=== PATIENT | male | born 1980 | race Two or more races ===

== ENCOUNTER 2016-11-29 18:54 | Inpatient (IN) | payer OTHER ==
[2016-11-29 19:17] VITALS: BMI 21.9
--- NOTE | 2016-11-29 19:57 | HP ---
CIWA Score - CIWA Score Nausea/Vomitin Muscle Tremors: 3 Anxiety: 3 Agitation: 2 Paroxysmal Sweats: 2 Orientation: 0-Oriented Tacttile Disturbances: 2-Mild Itch/Numbness/Burn Auditory Disturbances: 2-Mild Harshness/Frighten Visual Disturbances: 2-Mild Sensitivity Headache: 2-Mild CIWA-Ar Total Score: 21 Admission ROS BHS - HPI Chief Complaint: I NEED HELP TO STOP DRINKING ALCOHOL Allergies/Adverse Reactions: Allergies Allergy/AdvReac Type Severity Reaction Status Date / Time No Known Allergies Allergy Verified 10/14/16 11:22 History of Present Illness: THIS 36 YEARS OLD MALE WITH ALCOHOL DEPENDENCE,WITHDRAWAL SYMPTOM,LAST DETOX [facility] 10/14/16 TO 10/18/16 SYNCOPE ALCOHOL RELATED 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 PREVIOUS ADMISSIONS IN DETOX BUT RELAPSED LONGEST PERIOD OF SOBRIETY 1 MONTH Exam Limitations: No Limitations - Ebola screening Have you traveled outside of the country in the last 21 days: No Have you had contact with anyone from an Ebola affected area: No Do you have a fever: No - Review of Systems Constitutional: Loss of Appetite, Malaise, Night Sweats, Changes in sleep, Weakness EENT: reports: Nose Congestion Respiratory: reports: No Symptoms reported Cardiac: reports: Other (S/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 S/P IMPLANTED DEFIBRILLATOR) GI: reports: No Symptoms Reported : reports: No Symptoms Reported Musculoskeletal: reports: Muscle Pain Integumentary: reports: Dryness Neuro: reports: Headache, Tremors Endocrine: reports: No Symptoms Reported Hematology: reports: No Symptoms Reported Psychiatric: reports: other (PANIC ATTACK,ADHD) Patient History - Patient Medical History Hx Asthma: No Hx Chronic Obstructive Pulmonary Disease (COPD): No Hx Cardiac Disorders: Yes (TRANSPOSITION OF THE GREAT VESSELS) Hx Hypertension: Yes (on med) Hx Hypercholesterolemia: No Hx Pacemaker: No HX Cerebrovascular Accident: No Hx Seizures: No Hx Diabetes: No Hx Gastrointestinal Disorders: No Hx Liver Disease: No Hx Genitourinary Disorders: No Hx Sexually Transmitted Disorders: No Hx Renal Disease (ESRD): No Hx Thyroid Disease: No Hx Human Immunodeficiency Virus (HIV): No (last 04/04 negative) Hx Hepatitis C: No Hx Depression: No Hx Suicide Attempt: No Hx Bipolar Disorder: No Hx Schizophrenia: No Other Medical History: NO SUIDAL,NO HOMICIDAL,PANIC ATTACK,ADHD - Patient Surgical History Past Surgical History: Yes Hx Cardiac Surgery: Yes (AICD 02/02; OPEN SURGERY AT AGE 1 YEAR) Other Surgical History: 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 History Hx Alcohol Use: Yes Hx Substance Use: No Substance Use Type: Alcohol Hx Substance Use Treatment: Yes ([facility] 10/14/16 TO 10/18/16) - Substances Abused Alcohol Route: Oral Frequency: Daily Amount used: 2PINTS OF VODKA Age of first use: 21 Date of Last Use: 11/29/16 Family Disease History - Family Disease History Family Disease History: Heart Disease: Father (alcohol ,), Other: Father Admission Physical Exam S - Vital Signs Vital Signs: Vital Signs - 24 hr 11/29/16 19:16 Temperature 97.1 F L Pulse Rate 93 H Respiratory 20 Rate Blood Pressure 121/70 - Physical General Appearance: Yes: Moderate Distress, Tremorous, Irritable, Sweating, Anxious HEENTM: Yes: Nasal Congestion Respiratory: Yes: Lungs Clear Neck: Yes: Within Normal Limits Breast: Yes: Within Normal Limits Cardiology: Yes: Within Normal Limits (S/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 S/P IMPLANTED DEFIBRILLATOR), Regular Rhythm, Regular Rate, S1, S2 Abdominal: Yes: Within Normal Limits, Normal Bowel Sounds, Non Tender, Flat, Soft Genitourinary: Yes: Within Normal Limits Back: Yes: Within Normal Limits Musculoskeletal: Yes: Back pain, Muscle Pain Extremities: Yes: Tremors Neurological: Yes: 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, Fully Oriented, Alert, Motor Strength 5/5 Integumentary: Yes: Dry Lymphatic: Yes: Within Normal Limits - Diagnostic (1) Alcohol dependence with uncomplicated withdrawal Current Visit: No Status: Acute (2) Cardiac defibrillator in situ Current Visit: No Status: Chronic (3) GERD (gastroesophageal reflux disease) Current Visit: No Status: Chronic Qualifiers: Esophagitis presence: without esophagitis Qualified Code(s): K21.9 - Gastro-esophageal reflux disease without esophagitis (4) History of atrial fibrillation Current Visit: No Status: Chronic (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
[2016-11-29] MEDS ORDERED: MAGNESIUM CITRATE 300 ML BOTTLE PO PRN (20:15)
[2016-11-29] MEDS ORDERED: IBUPROFEN 400 MG TABLET (FP) PO PRN (20:15)
[2016-11-29] MEDS ORDERED: diphenhydrAMINE HCL 50 MG CAPSULE PO PRN (20:15)
[2016-11-29] MEDS ORDERED: ACETAMINOPHEN 325 MG TABLET (FP) PO PRN (20:15)
[2016-11-29] MEDS ORDERED: MAGNESIUM HYDROX 2400MG/30ML ORAL SUSPENSION 30 ML CUP PO PRN (20:15)
[2016-11-29] MEDS ORDERED: MAG HYDROX/AL HYDROX/SIMETH 30 ML UNIT-DOSE CUP PO PRN (20:15)
[2016-11-29] MEDS ORDERED: LOPERAMIDE HCL 2 MG CAPSULE PO PRN (20:15)
[2016-11-29] MEDS ORDERED: chlordiazePOXIDE HCL 25 MG CAPSULE PO ONE (20:15)
[2016-11-29] MEDS ORDERED: P-EPHED 60MG/TRIPROLIDI 2.5MG TABLET PO PRN (20:15)
[2016-11-29] MEDS ORDERED: guaiFENesin/D-METHORPHAN HB 10 ML UNIT-DOSE CUPS PO PRN (20:15)
[2016-11-29] MEDS ORDERED: MENTHOL/PHENOL 1 EACH UD MM PRN (20:15)
[2016-11-29] MEDS ORDERED: hydrOXYzine PAMOATE 25 MG CAPSULE (FP) PO PRN (20:15)
[2016-11-29] MEDS ORDERED: DABIGATRAN ETEXILATE MESYLATE PO SCH (22:00)
[2016-11-29] MEDS ORDERED: TRIMETHOBENZAMIDE HCL 200MG/2ML INJ IM PRN (22:47)
[2016-11-29] MEDS: THIAMINE HCL 100 MG TABLET (FP) PO SCH (22:55)
[2016-11-29] MEDS: chlordiazePOXIDE HCL 25 MG CAPSULE PO SCH (23:26)
[2016-11-30 03:23] LABS: URINE APPEARANCE CLEAR; URINE BILIRUBIN NEGATIVE (NEGATIVE); URINE COLOR YELLOW; URINE GLUCOSE (UA) NEGATIVE (NEGATIVE); URINE KETONE NEGATIVE (NEGATIVE); URINE LEUK ESTERASE NEGATIVE (NEGATIVE); URINE NITRITE NEGATIVE (NEGATIVE); URINE UROBILINOGEN NEGATIVE E.U./dl (0.2-1.0)
[2016-11-30 03:34] LABS: URINE BLOOD 1+ (NEGATIVE); URINE PROTEIN 3+ (NEGATIVE)
[2016-11-30 03:42] LABS: URINE HYALINE CAST 5 /lpf; URINE MUCUS RARE; URINE RBC 3 /hpf (0-3); URINE WBC <1 /hpf (3-5)
[2016-11-30] MEDS: chlordiazePOXIDE HCL 25 MG CAPSULE PO SCH ×4 (05:41→22:29)
[2016-11-30] MEDS ORDERED: PRENATAL VITAMINS W/ FOLIC ACID TABLET (FP) PO SCH (10:00)
[2016-11-30] MEDS ORDERED: PATIENT'S OWN MEDICATION (NON-FORMULARY) (Folic Acid [Folic Acid] 1 MG) PO SCH (10:00)
[2016-11-30] MEDS ORDERED: PANTOPRAZOLE SODIUM 40 MG PO SCH (10:00)
--- NOTE | 2016-11-30 10:02 | PN ---
S CIWA - CIWA Score Nausea/Vomitin Muscle Tremors: 3 Anxiety: 3 Agitation: 3 Paroxysmal Sweats: 1-Minimal Palms Moist Orientation: 0-Oriented Tacttile Disturbances: 1-Very Mild Itch/Numbness Auditory Disturbances: 1-Very Mild Visual Disturbances: 1-Very Mild Sensitivity Headache: 2-Mild CIWA-Ar Total Score: 18 BHS Progress Note (SOAP) Subjective: ALERT,IRRITABLE,ANXIOUS,INTERRUPTED SLEEP,TREMOR,NAUSEA Objective: 11/30/16 09:59 Vital Signs Temperature 97.7 F 11/30/16 09:36 Pulse Rate 80 11/30/16 09:36 Respiratory Rate 20 11/30/16 09:36 Blood Pressure 113/79 11/30/16 09:36 O2 Sat by Pulse Oximetry (%) 11/30/16 10:00 Laboratory Last Values Urine Color Yellow 11/29/16 23:02 Urine Appearance Clear 11/29/16 23:02 Urine pH 5.0 (5.0-8.0) 11/29/16 23:02 Ur Specific [place] 1.019 (1.001-1.035) 11/29/16 23:02 Urine Protein 3+ (NEGATIVE) H 11/29/16 23:02 Urine Glucose (UA) Negative (NEGATIVE) 11/29/16 23:02 Urine Ketones Negative (NEGATIVE) 11/29/16 23:02 Urine Blood 1+ (NEGATIVE) H 11/29/16 23:02 Urine Nitrite Negative (NEGATIVE) 11/29/16 23:02 Urine Bilirubin Negative (NEGATIVE) 11/29/16 23:02 Urine Urobilinogen Negative E.U./dl (0.2-1.0) 11/29/16 23:02 Ur Leukocyte Esterase Negative (NEGATIVE) 11/29/16 23:02 Urine RBC 3 /hpf (0-3) 11/29/16 23:02 Urine WBC <1 /hpf (3-5) 11/29/16 23:02 Hyaline Casts 5 /lpf 11/29/16 23:02 Urine Mucus Rare 11/29/16 23:02 LABS PENDING Assessment: 11/30/16 10:02 WITHDRAWAL SYMPTOM Plan: CONTINUE DETOX
[2016-11-30 11:16] LABS: MCH 24.2 pg (25.7-33.7); MEAN CELL VOLUME 75.8 fl (80-96); MEAN PLT VOLUME 8.1 fl (7.5-11.1); PLATELET COUNT 265 K/MM3 (134-434); RDW 16.7 % (11.9-15.9); WHITE BLOOD COUNT 3.1 K/mm3 (4.0-10.0)
[2016-11-30 11:25] LABS: ALBUMIN 3.3 g/dl (3.4-5.0); ALK PHOS 208 U/L (45-117); ANION GAP 12 (8-16); BILIRUBIN,TOTAL 0.9 mg/dL (0.2-1.0); CALCIUM 8.4 mg/dL (8.5-10.1); CO2 29 mmol/L (21-32); CREATININE 1.1 mg/dL (0.7-1.3); GLUCOSE,RANDOM 116 mg/dL (74-106); SGOT/AST 67 U/L (15-37); SGPT/ALT 30 U/L (12-78); TOT PROT 7.1 g/dl (6.4-8.2)
[2016-11-30 12:52] LABS: HIV 1 & 2 AB NEGATIVE; HIV 1 AGp24 NEGATIVE
[2016-11-30] MEDS: FUROSEMIDE PO SCH (13:23)
[2016-11-30] MEDS: LISINOPRIL PO SCH (13:24)
[2016-11-30] MEDS: DABIGATRAN ETEXILATE MESYLATE 150 MG CAPSULE PO SCH ×2 (13:25→22:29)
[2016-11-30] MEDS: SOTALOL HCL PO SCH ×2 (13:26→13:27)
[2016-11-30] MEDS: PANTOPRAZOLE 40 MG TABLET (FP) PO SCH (13:30)
--- NOTE | 2016-11-30 13:35 | CONSULT ---
[facility] Psychiatric Consult - Data Date of interview: 11/30/16 Admission source: [facility] Identifying data: Readmission to [facility] for this 36 y/o AA male seeking detox treatment on for alcohol dependence.Patient is ,a father of one,domiciled and employed. Substance Abuse History: - Smoking Cessation. Smoking history: Never smoked. Have you smoked in the past 12 months: No. Hx Chewing Tobacco Use: No. - Substance & Tx. History. Hx Alcohol Use: Yes. Hx Substance Use: No. Substance Use Type: Alcohol. Hx Substance Use Treatment: Yes ([facility] 10/14/16 TO 10/18/16). - Substances Abused. Alcohol. Route: Oral. Frequency: Daily. Amount used: 2PINTS OF VODKA. Age of first use: 21. Date of Last Use: . Patient admits to this pattern of substance use. Medical History: Atrial fibrillation (pacemaker in place),hypertension,alcohol- related seizures,syncope and a history of heart surgery at [age] year of age ( congenital transposition of the great vessels). Psychiatric History: Patient denies history of psychiatric hospitalizations. Physical/Sexual Abuse/Trauma History: Patient denies. Mental Status Exam - Mental Status Exam Alert and Oriented to: Time, Place, Person Cognitive Function: Good Patient Appearance: Well Groomed Mood: Hopeful, Euthymic Affect: Appropriate, Normal Range Patient Behavior: Fatigued, Appropriate, Cooperative (well-mannered) Speech Pattern: Clear, Appropriate Voice Loudness: Normal Thought Process: Goal Oriented Thought Disorder: Not Present Hallucinations: Denies Suicidal Ideation: Denies Homicidal Ideation: Denies Insight/Judgement: Poor Sleep: Fair Appetite: Good Muscle strength/Tone: Normal Gait/Station: Normal Psychiatric Findings - Problem List ([place] 1, 2,3) (1) Alcohol dependence with uncomplicated withdrawal Current Visit: Yes Status: Acute (2) Cardiac defibrillator in situ Current Visit: Yes Status: Chronic (3) GERD (gastroesophageal reflux disease) Current Visit: Yes Status: Chronic Qualifiers: Esophagitis presence: without esophagitis Qualified Code(s): K21.9 - Gastro-esophageal reflux disease without esophagitis (4) History of atrial fibrillation Current Visit: Yes Status: Chronic (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
--- NOTE | 2016-11-30 13:38 | EKG ---
Test Reason : Blood Pressure : / mmHG Vent. Rate : 067 BPM Atrial Rate : 067 BPM P-R Int : 148 ms QRS Dur : 174 ms QT Int : 554 ms P-R-T Axes : 041 107 -40 degrees QTc Int : 585 ms NORMAL SINUS RHYTHM RIGHT BUNDLE BRANCH BLOCK INFERIOR INFARCT , AGE UNDETERMINED MARKED T WAVE ABNORMALITY, CONSIDER LATERAL ISCHEMIA ABNORMAL ECG NO PREVIOUS ECGS AVAILABLE Confirmed by NATE BOOTH MD ([id number]) on 11/30/2016 1:37:36 PM Referred By: Confirmed By:NATE BOOTH MD
[2016-11-30] MEDS: chlordiazePOXIDE HCL 25 MG CAPSULE PO PRN (13:47)
[2016-11-30] MEDS: THIAMINE HCL 100 MG TABLET (FP) PO SCH (22:29)
[2016-12-01] MEDS: SOTALOL HCL PO SCH ×4 (01:19→22:27)
[2016-12-01] MEDS: chlordiazePOXIDE HCL 25 MG CAPSULE PO SCH ×3 (05:50→17:39)
[2016-12-01] MEDS: FUROSEMIDE PO SCH ×2 (05:50→14:09)
[2016-12-01] MEDS: DABIGATRAN ETEXILATE MESYLATE 150 MG CAPSULE PO SCH ×2 (10:25→22:26)
[2016-12-01] MEDS: PANTOPRAZOLE 40 MG TABLET (FP) PO SCH (10:25)
[2016-12-01] MEDS: LISINOPRIL PO SCH (10:26)
--- NOTE | 2016-12-01 11:11 | PN ---
[facility] CIWA - CIWA Score Nausea/Vomitin-Mild Nausea/No Vomiting Muscle Tremors: 4-Moderate,w/Arms Extend Anxiety: 4-Mod. Anxious/Guarded Agitation: 3 Paroxysmal Sweats: 3 Orientation: 0-Oriented Tacttile Disturbances: 0-None Auditory Disturbances: 0-None Visual Disturbances: 0-None Headache: 0-None Present CIWA-Ar Total Score: 15 BHS Progress Note (SOAP) Subjective: anxiety,tremors,sweating,interrupted sleep,restless Objective: 12/01/16 11:09 Vital Signs - 8 hr 12/01/16 12/01/16 12/01/16 03:30 06:00 10:00 Temperature 97.5 F L 96.1 F L Pulse Rate 61 66 Respiratory 18 18 18 Rate Blood Pressure 120/76 149/93 Laboratory Tests 11/29/16 11/30/16 11/30/16 23:02 07:50 07:50 WBC 3.1 L D RBC 5.49 Hgb 13.3 D Hct 41.6 MCV 75.8 L MCHC 32.0 RDW 16.7 H Plt Count 265 MPV 8.1 Sodium Potassium Chloride Carbon Dioxide Anion Gap BUN Creatinine Creat Clearance w eGFR Random Glucose Calcium Total Bilirubin AST ALT Alkaline Phosphatase Total Protein Albumin Urine Color Yellow Urine Appearance Clear Urine pH 5.0 Ur Specific [place] 1.019 Urine Protein 3+ H Urine Glucose (UA) Negative Urine Ketones Negative Urine Blood 1+ H Urine Nitrite Negative Urine Bilirubin Negative Urine Urobilinogen Negative Ur Leukocyte Esterase Negative Urine RBC 3 Urine WBC <1 Hyaline Casts 5 Urine Mucus Rare RPR Titer HIV 1&2 Antibody Screen Negative HIV P24 Antigen Negative 11/30/16 11/30/16 07:50 07:50 WBC RBC Hgb Hct MCV MCHC RDW Plt Count MPV Sodium 138 Potassium 3.7 Chloride 97 L Carbon Dioxide 29 Anion Gap 12 BUN 25 H D Creatinine 1.1 Creat Clearance w eGFR > 60 Random Glucose 116 H Calcium 8.4 L Total Bilirubin 0.9 D AST 67 H D ALT 30 Alkaline Phosphatase 208 H Total Protein 7.1 Albumin 3.3 L Urine Color Urine Appearance Urine pH Ur Specific [place] Urine Protein Urine Glucose (UA) Urine Ketones Urine Blood Urine Nitrite Urine Bilirubin Urine Urobilinogen Ur Leukocyte Esterase Urine RBC Urine WBC Hyaline Casts Urine Mucus RPR Titer Nonreactive HIV 1&2 Antibody Screen HIV P24 Antigen Labs noted Assessment: 12/01/16 11:10 Withdrawal sx. Plan: Continue detox
[2016-12-01] MEDS: chlordiazePOXIDE HCL 25 MG CAPSULE PO PRN (14:13)
[2016-12-01] MEDS: chlordiazePOXIDE 5 MG CAPSULE PO SCH (22:26)
[2016-12-01] MEDS: THIAMINE HCL 100 MG TABLET (FP) PO SCH (22:27)
[2016-12-02] MEDS: chlordiazePOXIDE 5 MG CAPSULE PO SCH (05:18)
[2016-12-02] MEDS: FUROSEMIDE PO SCH (05:45)
[2016-12-02 05:46] VITALS: BP 104/64; PULSE 60; TEMP 98.6
--- NOTE | 2016-12-02 08:27 | DS ---
[facility] Detox Discharge Summary Admission Date: 11/29/16 - Physical Exam Results Vital Signs: Vital Signs Temperature 98.6 F 12/02/16 05:45 Pulse Rate 60 12/02/16 05:45 Respiratory Rate 16 12/02/16 05:45 Blood Pressure 104/64 12/02/16 05:45 O2 Sat by Pulse Oximetry (%) - Treatment Hospital Course: Detox Protocol Followed, Detoxed Safely, Discharged Condition Good - Medication Discharge Medications: Ambulatory Orders Dabigatran Etexilate Mesylate [Pradaxa -] 150 mg PO BID 10/14/16 Folic Acid 1 mg PO DAILY 10/14/16 Furosemide [Lasix -] 40 mg PO BID 10/14/16 Lisinopril 10 mg PO DAILY 10/14/16 Pantoprazole Sodium 40 mg PO DAILY 10/14/16 Sotalol HCl [Sotalol] 120 mg PO BID 10/14/16 - Diagnosis (1) Alcohol dependence with uncomplicated withdrawal Current Visit: Yes Status: Chronic (2) Syncope Current Visit: Yes Status: Chronic Qualifiers: Syncope type: unspecified Qualified Code(s): R55 - Syncope and collapse (3) Cardiac defibrillator in situ Current Visit: Yes Status: Chronic (4) GERD (gastroesophageal reflux disease) Current Visit: Yes Status: Chronic Qualifiers: Esophagitis presence: without esophagitis Qualified Code(s): K21.9 - Gastro-esophageal reflux disease without esophagitis (5) History of atrial fibrillation Current Visit: Yes Status: Chronic (6) History of transposition of great vessels Current Visit: Yes Status: Chronic (7) Hypertension Current Visit: Yes Status: Chronic Qualifiers: Hypertension type: essential hypertension Qualified Code(s): I10 - Essential (primary) hypertension - AMA Did Patient Leave Against Medical Advice: No
[2016-12-02] MEDS ORDERED: chlordiazePOXIDE HCL 10 MG CAPSULE PO SCH (23:00)
== END 2016-12-02 08:46 | disposition home or self-care (01) | DRG 775 ==
LOC: YASAS 18:54 → Y6N 20:05
PROVIDERS: ADMIT Internal Medicine; ATTEND Internal Medicine
PROC: HZ2ZZZZ Detoxification Services for Substance Abuse Treatment (ICD-10-PCS; principal; 2016-12-02)
DX: F10.230 Alcohol dependence with withdrawal, uncomplicated (principal); I48.91 Unspecified atrial fibrillation; I10 Essential (primary) hypertension; K21.9 Gastro-esophageal reflux disease without esophagitis; R55 Syncope and collapse; Z95.810 Presence of automatic (implantable) cardiac defibrillator; Z95.1 Presence of aortocoronary bypass graft; Z86.79 Personal history of other diseases of the circulatory system
CPT/HCPCS: 36415; 80053; 81003; 81015; 85027; 86593; 87389; 93005; 93010

== ENCOUNTER 2016-12-22 12:21 | Inpatient (IN) | payer BC, OTHER ==
[2016-12-22 12:35] VITALS: BMI 23.0
--- NOTE | 2016-12-22 14:59 | HP ---
CIWA Score - CIWA Score Nausea/Vomitin Muscle Tremors: 3 Anxiety: 3 Agitation: 3 Paroxysmal Sweats: 2 Orientation: 0-Oriented Tacttile Disturbances: 2-Mild Itch/Numbness/Burn Auditory Disturbances: 2-Mild Harshness/Frighten Visual Disturbances: 2-Mild Sensitivity Headache: 2-Mild CIWA-Ar Total Score: 22 Admission ROS BHS - HPI Chief Complaint: i need help to stop drinking alcohol Allergies/Adverse Reactions: Allergies Allergy/AdvReac Type Severity Reaction Status Date / Time No Known Allergies Allergy Verified 12/22/16 14:00 History of Present Illness: this 36 years old male with alcohol dependence,withdrawal symptom,last detox 08/05 to 12/02/16 [facility] syncope alcohol related history of transposition of great vessels atrial fibrillation hx s/p dardiac defibrillator in situ longest period of sobriety 1 year Exam Limitations: No Limitations - Ebola screening Have you traveled outside of the country in the last 21 days: No Have you had contact with anyone from an Ebola affected area: No Have you been sick,other than usual withdrawal symptoms: No Do you have a fever: No - Review of Systems Constitutional: Chills, Diaphoresis, Loss of Appetite, Malaise, Night Sweats, Changes in sleep, Weakness EENT: reports: Nose Congestion Respiratory: reports: No Symptoms reported Cardiac: reports: Palpitations GI: reports: Diarrhea, Nausea, Vomiting, Abdominal cramping, Other (s/p surgery for transposition of great vessels history of atrial fibrillation s/p implanted defrillator) : reports: No Symptoms Reported Musculoskeletal: reports: Back Pain, Muscle Pain Integumentary: reports: Dryness Neuro: reports: Headache, Tremors Endocrine: reports: No Symptoms Reported Hematology: reports: No Symptoms Reported Psychiatric: reports: No Sypmtoms Reported Patient History - Patient Medical History Hx Anemia: No Hx Asthma: No Hx Chronic Obstructive Pulmonary Disease (COPD): No Hx Cancer: No Hx Cardiac Disorders: Yes (Afibrillation,s/p srgery for transposition of great vessels,s,p implanted c) Hx Hypertension: Yes Hx Hypercholesterolemia: No Hx Pacemaker: No HX Cerebrovascular Accident: No Hx Seizures: Yes (6 months ago) Hx Diabetes: No Hx Gastrointestinal Disorders: No Hx Liver Disease: No Hx Genitourinary Disorders: No Hx Sexually Transmitted Disorders: No Hx Renal Disease (ESRD): No Hx Thyroid Disease: No Hx Human Immunodeficiency Virus (HIV): No (last 04/04 negative) Hx Hepatitis C: No Hx Depression: No Hx Suicide Attempt: No Hx Bipolar Disorder: No Hx Schizophrenia: No Other Medical History: no suicidal,no homicidal - Patient Surgical History Past Surgical History: Yes Hx Neurologic Surgery: No Hx Cataract Extraction: No Hx Cardiac Surgery: Yes (AICD 02/02; OPEN SURGERY AT AGE 1 YEAR) Hx Lung Surgery: No Hx Breast Surgery: No Hx Breast Biopsy: No Hx Abdominal Surgery: No Hx Appendectomy: No Hx Cholecystectomy: No Hx Genitourinary Surgery: No Hx Section: No Hx Orthopedic Surgery: No Other Surgical History: 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 History Hx Alcohol Use: Yes Hx Substance Use: No Substance Use Type: Alcohol Hx Substance Use Treatment: Yes (last [facility] 11/29/16 to 12/02/16) - Substances Abused Alcohol Route: Oral Frequency: Daily Amount used: 1/2 pint Vodka Age of first use: 21 Date of Last Use: 12/22/16 Family Disease History - Family Disease History Family Disease History: Heart Disease: Father (alcohol ,), Other: Father Admission Physical Exam BHS - Vital Signs Vital Signs: Vital Signs - 24 hr 12/22/16 12:28 Temperature 96.6 F L Pulse Rate 109 H Respiratory 20 Rate Blood Pressure 139/102 - Physical General Appearance: Yes: Moderate Distress, Tremorous, Irritable, Sweating, Anxious HEENTM: Yes: Nasal Congestion Respiratory: Yes: Lungs Clear, Normal Breath Sounds, No Respiratory Distress Neck: Yes: Within Normal Limits Breast: Yes: Within Normal Limits Cardiology: Yes: Regular Rhythm, Regular Rate, S1, S2, Surgical Scar, Other (s/ p surgery for tansposition of gret vessels history of atrial fibrillation s/p implanted dardiac defibrillator left) Abdominal: Yes: Within Normal Limits, Normal Bowel Sounds, Non Tender, Flat, Soft Genitourinary: Yes: Within Normal Limits Back: Yes: Muscle Spasm Musculoskeletal: Yes: Within Normal Limits, full range of Motion, Gait Steady, Back pain Extremities: Yes: Normal Range of Motion, Tremors Neurological: Yes: Within Normal Limits, 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, Fully Oriented, Alert, Motor Strength 5/5 Integumentary: Yes: Dry Lymphatic: Yes: Within Normal Limits - Diagnostic (1) Alcohol dependence with uncomplicated withdrawal Current Visit: No Status: Chronic (2) Cardiac defibrillator in situ Current Visit: No Status: Chronic (3) GERD (gastroesophageal reflux disease) Current Visit: No Status: Chronic Qualifiers: Esophagitis presence: without esophagitis Qualified Code(s): K21.9 - Gastro-esophageal reflux disease without esophagitis (4) History of atrial fibrillation Current Visit: No Status: Chronic (5) History of transposition of great vessels Current Visit: No Status: Chronic (6) Hypertension Current Visit: No Status: Chronic Qualifiers: Hypertension type: essential hypertension Qualified Code(s): I10 - Essential (primary) hypertension (7) Syncope Current Visit: No Status: Chronic Qualifiers: Syncope type: unspecified Qualified Code(s): R55 - Syncope and collapse (8) Insomnia Current Visit: Yes Status: Acute (9) Seizure Current Visit: Yes Status: Acute Cleared for Admission [facility] - Detox or Rehab [facility] Level of Care: Medically Managed Detox Regimen/Protocol: Librium [facility] Breath Alcohol Content Breath Alcohol Content: 0.203 Urine Drug Screen - Results Drug Screen Negative: No Urine Drug Screen Results: BZO-Benzodiazepines
[2016-12-22] MEDS ORDERED: MENTHOL/PHENOL 1 EACH UD MM PRN (15:20)
[2016-12-22] MEDS ORDERED: MAG HYDROX/AL HYDROX/SIMETH 30 ML UNIT-DOSE CUP PO PRN (15:20)
[2016-12-22] MEDS ORDERED: IBUPROFEN 400 MG TABLET (FP) PO PRN (15:20)
[2016-12-22] MEDS ORDERED: P-EPHED 60MG/TRIPROLIDI 2.5MG TABLET PO PRN (15:20)
[2016-12-22] MEDS ORDERED: chlordiazePOXIDE HCL 25 MG CAPSULE PO ONE (15:20)
[2016-12-22] MEDS ORDERED: ACETAMINOPHEN 325 MG TABLET (FP) PO PRN (15:20)
[2016-12-22] MEDS ORDERED: MAGNESIUM CITRATE 300 ML BOTTLE PO PRN (15:20)
[2016-12-22] MEDS ORDERED: guaiFENesin/D-METHORPHAN HB 10 ML UNIT-DOSE CUPS PO PRN (15:20)
[2016-12-22] MEDS ORDERED: LOPERAMIDE HCL 2 MG CAPSULE PO PRN (15:20)
[2016-12-22] MEDS ORDERED: MAGNESIUM HYDROX 2400MG/30ML ORAL SUSPENSION 30 ML CUP PO PRN (15:20)
[2016-12-22] MEDS ORDERED: diphenhydrAMINE HCL 50 MG CAPSULE PO PRN (15:20)
[2016-12-22] MEDS: chlordiazePOXIDE HCL 25 MG CAPSULE PO SCH ×2 (16:51→22:36)
[2016-12-22 17:03] LABS: URINE APPEARANCE CLEAR; URINE BILIRUBIN NEGATIVE (NEGATIVE); URINE COLOR DKYELLOW; URINE GLUCOSE (UA) 1+ (NEGATIVE); URINE KETONE NEGATIVE (NEGATIVE); URINE LEUK ESTERASE NEGATIVE (NEGATIVE); URINE NITRITE NEGATIVE (NEGATIVE); URINE UROBILINOGEN NEGATIVE E.U./dl (0.2-1.0)
[2016-12-22 17:04] LABS: URINE BLOOD 2+ (NEGATIVE); URINE PROTEIN 3+ (NEGATIVE)
[2016-12-22 17:11] LABS: GRANULAR CASTS 12 /lpf; URINE MUCUS FEW; URINE RBC <1 /hpf (0-3); URINE WBC 3 /hpf (3-5)
[2016-12-22] MEDS: chlordiazePOXIDE HCL 25 MG CAPSULE PO PRN (19:39)
[2016-12-22] MEDS: hydrOXYzine PAMOATE 25 MG CAPSULE (FP) PO PRN (20:00)
[2016-12-22] MEDS ORDERED: cloNIDine HCL 0.1 MG TABLET PO ONE (22:04)
[2016-12-22] MEDS: THIAMINE HCL 100 MG TABLET (FP) PO SCH (22:36)
[2016-12-23] MEDS: chlordiazePOXIDE HCL 25 MG CAPSULE PO SCH ×4 (05:51→22:41)
[2016-12-23] MEDS: chlordiazePOXIDE HCL 25 MG CAPSULE PO PRN ×2 (09:24→19:38)
[2016-12-23] MEDS: PRENATAL VITAMINS W/ FOLIC ACID TABLET (FP) PO SCH (10:39)
[2016-12-23] MEDS: PANTOPRAZOLE 40 MG TABLET (FP) PO SCH (10:41)
[2016-12-23 10:42] LABS: MCHC 32.2 g/dl (32.0-35.9); MEAN CELL VOLUME 74.6 fl (80-96); PLATELET COUNT 237 K/MM3 (134-434); RDW 15.8 % (11.9-15.9); WHITE BLOOD COUNT 3.1 K/mm3 (4.0-10.0)
[2016-12-23] MEDS: LISINOPRIL 10 MG PO SCH (10:42)
[2016-12-23] MEDS: FUROSEMIDE PO SCH ×2 (10:42→14:04)
[2016-12-23] MEDS: DABIGATRAN ETEXILATE MESYLATE PO SCH ×3 (10:43→22:43)
[2016-12-23] MEDS: SOTALOL HCL 120 MG PO SCH ×3 (10:44→22:42)
[2016-12-23 11:11] LABS: ALK PHOS 247 U/L (45-117); BILIRUBIN,TOTAL 1.4 mg/dL (0.2-1.0); CALCIUM 8.5 mg/dL (8.5-10.1); CO2 28 mmol/L (21-32); CREATININE 1.1 mg/dL (0.7-1.3); GLUCOSE,RANDOM 132 mg/dL (74-106); SGOT/AST 102 U/L (15-37); SGPT/ALT 44 U/L (12-78); TOT PROT 6.8 g/dl (6.4-8.2)
--- NOTE | 2016-12-23 11:27 | EKG ---
Test Reason : Blood Pressure : / mmHG Vent. Rate : 098 BPM Atrial Rate : 098 BPM P-R Int : 174 ms QRS Dur : 152 ms QT Int : 408 ms P-R-T Axes : 015 119 -39 degrees QTc Int : 520 ms NORMAL SINUS RHYTHM RIGHT BUNDLE BRANCH BLOCK , PLUS RIGHT VENTRICULAR HYPERTROPHY LEFT POSTERIOR FASCICULAR BLOCK BIFASCICULAR BLOCK LEFT VENTRICULAR HYPERTROPHY WITH REPOLARIZATION ABNORMALITY INFERIOR INFARCT (CITED ON OR BEFORE 29-NOV-2016) ABNORMAL ECG WHEN COMPARED WITH ECG OF 29-NOV-2016 20:49, T WAVE INVERSION MORE EVIDENT IN ANTEROLATERAL LEADS QT HAS SHORTENED Confirmed by DANIEL JOHNSON, DORI ([id number]) on 12/23/2016 11:27:14 AM Referred By: Confirmed By:DORI SANCHEZ MD
[2016-12-23 11:28] LABS: ANION GAP 12 (8-16)
[2016-12-23 11:31] LABS: TROPONIN I 0.05 ng/ml (0.00-0.05)
[2016-12-23] MEDS: FOLIC ACID 1 MG TABLET (FP) PO SCH (11:53)
[2016-12-23 12:07] LABS: HIV 1 & 2 AB NEGATIVE; HIV 1 AGp24 NEGATIVE
--- NOTE | 2016-12-23 13:23 | PN ---
S CIWA - CIWA Score Nausea/Vomitin-Mild Nausea/No Vomiting Muscle Tremors: 5 Anxiety: 4-Mod. Anxious/Guarded Agitation: 4-Moderately Restless Paroxysmal Sweats: 3 Orientation: 0-Oriented Tacttile Disturbances: 1-Very Mild Itch/Numbness Auditory Disturbances: 0-None Visual Disturbances: 0-None Headache: 0-None Present CIWA-Ar Total Score: 18 BHS Progress Note (SOAP) Subjective: Anxiety,tremors,sweating,interrupted sleep,restless. Objective: 12/23/16 13:18 Vital Signs - 8 hr 12/23/16 12/23/16 06:52 09:42 Temperature 96.7 F L Pulse Rate 81 92 H Respiratory 18 20 Rate Blood Pressure 135/95 144/102 Laboratory Tests 12/22/16 12/22/16 12/23/16 07:00 16:45 07:00 WBC 3.1 L RBC 6.04 H Hgb 14.5 Hct 45.1 MCV 74.6 L MCHC 32.2 RDW 15.8 Plt Count 237 MPV 8.0 Sodium Potassium Chloride Carbon Dioxide Anion Gap BUN Creatinine Creat Clearance w eGFR Random Glucose Calcium Total Bilirubin AST ALT Alkaline Phosphatase Creatine Kinase Creatine Kinase Index CK-MB (CK-2) CK-MB (CK-2) Rel Index Troponin I Total Protein Albumin Urine Color Dkyellow Urine Appearance Clear Urine pH 5.0 Ur Specific [place] 1.038 H Urine Protein 3+ H Urine Glucose (UA) 1+ H Urine Ketones Negative Urine Blood 2+ H Urine Nitrite Negative Urine Bilirubin Negative Urine Urobilinogen Negative Ur Leukocyte Esterase Negative Urine RBC <1 Urine WBC 3 Ur Epithelial Cells Rare Granular Casts 12 Urine Mucus Few RPR Titer HIV 1&2 Antibody Screen Negative HIV P24 Antigen Negative 12/23/16 12/23/16 12/23/16 07:00 07:00 07:00 WBC RBC Hgb Hct MCV MCHC RDW Plt Count MPV Sodium 137 Potassium 3.6 Chloride 97 L Carbon Dioxide 28 Anion Gap 12 BUN 20 H Creatinine 1.1 Creat Clearance w eGFR > 60 Random Glucose 132 H Calcium 8.5 Total Bilirubin 1.4 H D AST 102 H D ALT 44 D Alkaline Phosphatase 247 H Creatine Kinase 189 Creatine Kinase Index 0.8 CK-MB (CK-2) 1.525 CK-MB (CK-2) Rel Index Cancelled Troponin I 0.05 Total Protein 6.8 Albumin 3.0 L Urine Color Urine Appearance Urine pH Ur Specific [place] Urine Protein Urine Glucose (UA) Urine Ketones Urine Blood Urine Nitrite Urine Bilirubin Urine Urobilinogen Ur Leukocyte Esterase Urine RBC Urine WBC Ur Epithelial Cells Granular Casts Urine Mucus RPR Titer Nonreactive HIV 1&2 Antibody Screen HIV P24 Antigen labs noted,EKG is consistent with pt. hx. of surgery for transposition of the great vessels. He has hx. of AF on Sotalol & Pradaxa Assessment: 12/23/16 13:19 Withdrawal sx. Plan: Continue detox
[2016-12-23] MEDS ORDERED: chlordiazePOXIDE HCL 25 MG CAPSULE PO ONE (14:00)
--- NOTE | 2016-12-23 14:04 | CONSULT ---
[facility] Psychiatric Consult - Data Date of interview: 12/23/16 Admission source: [facility] Identifying data: Another admission to [facility] for this 36 y/o AA male seeking detox treatment on for alcohol dependence.Patient is ,a father of one,domiciled and employed. Substance Abuse History: - Smoking Cessation. Smoking history: Never smoked. Have you smoked in the past 12 months: No. Hx Chewing Tobacco Use: No. - Substance & Tx. History. Hx Alcohol Use: Yes. Hx Substance Use: No. Substance Use Type: Alcohol. Hx Substance Use Treatment: Yes (last [facility] to 12/02/16). - Substances Abused. Alcohol. Route: Oral. Frequency: Daily. Amount used: 1/2 pint Vodka. Age of first use: 21. Date of Last Use: 12/22/16. Confirmed by the patient in this interview. Medical History: Atrial fibrillation (pacemaker in place),hypertension,alcohol- related seizures,syncope and a history of heart surgery at [age] year of age ( congenital transposition of the great vessels). Psychiatric History: Patient denies. Physical/Sexual Abuse/Trauma History: Patient denies. Additional Comment: Urine Drug Screen Results: BZO-Benzodiazepines.Noted. Mental Status Exam - Mental Status Exam Alert and Oriented to: Time, Place, Person Cognitive Function: Good Patient Appearance: Well Groomed (tattoos on forearms) Mood: Withdrawn, Hopeful Affect: Normal Range Patient Behavior: Fatigued, Cooperative Speech Pattern: Clear Voice Loudness: Normal Thought Process: Intact, Goal Oriented Thought Disorder: Not Present Hallucinations: Denies Suicidal Ideation: Denies Homicidal Ideation: Denies Insight/Judgement: Fair Sleep: Poorly, Difficulty falling asleep Appetite: Good Muscle strength/Tone: Normal Gait/Station: Normal Psychiatric Findings - Problem List ([place] 1, 2,3) (1) Alcohol dependence with uncomplicated withdrawal Current Visit: Yes Status: Acute (2) Seizure Current Visit: Yes Status: Chronic (3) Cardiac defibrillator in situ Current Visit: Yes Status: Chronic (4) GERD (gastroesophageal reflux disease) Current Visit: Yes Status: Chronic Qualifiers: Esophagitis presence: without esophagitis Qualified Code(s): K21.9 - Gastro-esophageal reflux disease without esophagitis (5) History of atrial fibrillation Current Visit: Yes Status: Chronic (6) History of transposition of great vessels Current Visit: Yes Status: Chronic (7) Hypertension Current Visit: Yes Status: Chronic Qualifiers: Hypertension type: essential hypertension Qualified Code(s): I10 - Essential (primary) hypertension (8) Insomnia Current Visit: Yes Status: Chronic - Initial Treatment Plan Initial Treatment Plan: Psychoeducation.Detoxification.Zolpidem 10 mg po hs prn.Patient made aware of the risk of parasomnias.Patient agrees with this careplan.Observation.
[2016-12-23] MEDS: THIAMINE HCL 100 MG TABLET (FP) PO SCH (22:41)
[2016-12-23] MEDS: ZOLPIDEM TARTRATE 10 MG TABLET (PARK CARE ONLY) PO PRN (22:41)
[2016-12-24] MEDS: chlordiazePOXIDE HCL 25 MG CAPSULE PO SCH ×2 (05:17→10:28)
[2016-12-24] MEDS: FUROSEMIDE PO SCH ×2 (05:18→13:09)
[2016-12-24] MEDS: PRENATAL VITAMINS W/ FOLIC ACID TABLET (FP) PO SCH (10:28)
[2016-12-24] MEDS: PANTOPRAZOLE 40 MG TABLET (FP) PO SCH (10:28)
[2016-12-24] MEDS: SOTALOL HCL 120 MG PO SCH ×2 (10:28→22:44)
[2016-12-24] MEDS: DABIGATRAN ETEXILATE MESYLATE PO SCH ×2 (10:29→22:44)
[2016-12-24] MEDS: LISINOPRIL 10 MG PO SCH (10:29)
[2016-12-24] MEDS: FOLIC ACID 1 MG TABLET (FP) PO SCH (10:30)
--- NOTE | 2016-12-24 10:51 | PN ---
[facility] CIWA - CIWA Score Nausea/Vomitin-No Nausea/No Vomiting Muscle Tremors: 4-Moderate,w/Arms Extend Anxiety: 4-Mod. Anxious/Guarded Agitation: 4-Moderately Restless Paroxysmal Sweats: 1-Minimal Palms Moist Orientation: 0-Oriented Tacttile Disturbances: 3-Moderate Itch/Numb/Burn Auditory Disturbances: 0-None Visual Disturbances: 0-None Headache: 0-None Present CIWA-Ar Total Score: 16 S Progress Note (SOAP) Subjective: ANXIETY,SWEATS, DECREASED TREMORS,INTERMITTENT SLEEP. Objective: 12/24/16 10:50 Vital Signs Temperature 95.7 F L 12/24/16 10:13 Pulse Rate 70 12/24/16 10:13 Respiratory Rate 18 12/24/16 10:13 Blood Pressure 138/90 12/24/16 10:13 O2 Sat by Pulse Oximetry (%) Laboratory Last Values WBC 3.1 K/mm3 (4.0-10.0) L 12/23/16 07:00 RBC 6.04 M/mm3 (4.00-5.60) H 12/23/16 07:00 Hgb 14.5 GM/dL (11.7-16.9) 12/23/16 07:00 Hct 45.1 % (35.4-49) 12/23/16 07:00 MCV 74.6 fl (80-96) L 12/23/16 07:00 MCHC 32.2 g/dl (32.0-35.9) 12/23/16 07:00 RDW 15.8 % (11.9-15.9) 12/23/16 07:00 Plt Count 237 K/MM3 (134-434) 12/23/16 07:00 MPV 8.0 fl (7.5-11.1) 12/23/16 07:00 Sodium 137 mmol/L (136-145) 12/23/16 07:00 Potassium 3.6 mmol/L (3.5-5.1) 12/23/16 07:00 Chloride 97 mmol/L (98-107) L 12/23/16 07:00 Carbon Dioxide 28 mmol/L (21-32) 12/23/16 07:00 Anion Gap 12 (8-16) 12/23/16 07:00 BUN 20 mg/dL (7-18) H 12/23/16 07:00 Creatinine 1.1 mg/dL (0.7-1.3) 12/23/16 07:00 Creat Clearance w eGFR > 60 (>60) 12/23/16 07:00 Random Glucose 132 mg/dL (74-106) H 12/23/16 07:00 Calcium 8.5 mg/dL (8.5-10.1) 12/23/16 07:00 Total Bilirubin 1.4 mg/dL (0.2-1.0) H D 12/23/16 07:00 AST 102 U/L (15-37) H D 12/23/16 07:00 ALT 44 U/L (12-78) D 12/23/16 07:00 Alkaline Phosphatase 247 U/L (45-117) H 12/23/16 07:00 Creatine Kinase 189 IU/L (39-308) 12/23/16 07:00 Creatine Kinase Index 0.8 % (0.0-5.0) 12/23/16 07:00 CK-MB (CK-2) 1.525 ng/ml (0.5-3.6) 12/23/16 07:00 CK-MB (CK-2) Rel Index Cancelled 12/23/16 07:00 Troponin I 0.05 ng/ml (0.00-0.05) 12/23/16 07:00 Total Protein 6.8 g/dl (6.4-8.2) 12/23/16 07:00 Albumin 3.0 g/dl (3.4-5.0) L 12/23/16 07:00 Urine Color Dkyellow 12/22/16 16:45 Urine Appearance Clear 12/22/16 16:45 Urine pH 5.0 (5.0-8.0) 12/22/16 16:45 Ur Specific [place] 1.038 (1.001-1.035) H 12/22/16 16:45 Urine Protein 3+ (NEGATIVE) H 12/22/16 16:45 Urine Glucose (UA) 1+ (NEGATIVE) H 12/22/16 16:45 Urine Ketones Negative (NEGATIVE) 12/22/16 16:45 Urine Blood 2+ (NEGATIVE) H 12/22/16 16:45 Urine Nitrite Negative (NEGATIVE) 12/22/16 16:45 Urine Bilirubin Negative (NEGATIVE) 12/22/16 16:45 Urine Urobilinogen Negative E.U./dl (0.2-1.0) 12/22/16 16:45 Ur Leukocyte Esterase Negative (NEGATIVE) 12/22/16 16:45 Urine RBC <1 /hpf (0-3) 12/22/16 16:45 Urine WBC 3 /hpf (3-5) 12/22/16 16:45 Ur Epithelial Cells Rare /hpf (FEW) 12/22/16 16:45 Granular Casts 12 /lpf 12/22/16 16:45 Urine Mucus Few 12/22/16 16:45 RPR Titer Nonreactive (NONREACTIVE) 12/23/16 07:00 Hepatitis C Antibody <0.1 s/co ratio (0.0-0.9) 12/22/16 07:00 HIV 1&2 Antibody Screen Negative 12/22/16 07:00 HIV P24 Antigen Negative 12/22/16 07:00 Assessment: 12/24/16 10:50 WITHDRAWAL SX Plan: CONTINUE DETOX
--- NOTE | 2016-12-24 11:08 | EKG ---
Test Reason : Blood Pressure : / mmHG Vent. Rate : 087 BPM Atrial Rate : 087 BPM P-R Int : 134 ms QRS Dur : 158 ms QT Int : 440 ms P-R-T Axes : 016 124 -48 degrees QTc Int : 529 ms NORMAL SINUS RHYTHM RIGHT BUNDLE BRANCH BLOCK , PLUS RIGHT VENTRICULAR HYPERTROPHY LEFT POSTERIOR FASCICULAR BLOCK BIFASCICULAR BLOCK POSSIBLE INFERIOR INFARCT (CITED ON OR BEFORE 29-NOV-2016) CANNOT RULE OUT ANTEROSEPTAL INFARCT , AGE UNDETERMINED T WAVE ABNORMALITY, CONSIDER LATERAL ISCHEMIA ABNORMAL ECG WHEN COMPARED WITH ECG OF 22-DEC-2016 17:06, T WAVE VARIATION Confirmed by LAURO JOHNSON, VANDANA ([id number]) on 12/24/2016 11:07:51 AM Referred By: Confirmed By:VANDANA RESTREPO MD
[2016-12-24] MEDS: chlordiazePOXIDE HCL 25 MG CAPSULE PO PRN (13:09)
[2016-12-24] MEDS: chlordiazePOXIDE 5 MG CAPSULE PO SCH ×2 (17:09→22:43)
[2016-12-24] MEDS: ZOLPIDEM TARTRATE 10 MG TABLET (PARK CARE ONLY) PO PRN (22:43)
[2016-12-24] MEDS: THIAMINE HCL 100 MG TABLET (FP) PO SCH (22:43)
[2016-12-25] MEDS: FUROSEMIDE PO SCH ×2 (05:26→15:45)
[2016-12-25] MEDS: chlordiazePOXIDE 5 MG CAPSULE PO SCH ×2 (05:26→10:36)
[2016-12-25] MEDS: FOLIC ACID 1 MG TABLET (FP) PO SCH (10:00)
[2016-12-25] MEDS: LISINOPRIL 10 MG PO SCH (10:35)
[2016-12-25] MEDS: PANTOPRAZOLE 40 MG TABLET (FP) PO SCH (10:35)
[2016-12-25] MEDS: PRENATAL VITAMINS W/ FOLIC ACID TABLET (FP) PO SCH (10:35)
[2016-12-25] MEDS: DABIGATRAN ETEXILATE MESYLATE PO SCH ×2 (10:35→22:43)
[2016-12-25] MEDS: SOTALOL HCL 120 MG PO SCH ×2 (10:36→22:43)
--- NOTE | 2016-12-25 12:43 | PN ---
[facility] Progress Note (SOAP) Subjective: ANXIETY,SWEATS,IRRITABILITY. Objective: 12/25/16 12:41 Vital Signs Temperature 96.2 F L 12/25/16 09:56 Pulse Rate 73 12/25/16 09:56 Respiratory Rate 18 12/25/16 09:56 Blood Pressure 113/78 12/25/16 09:56 O2 Sat by Pulse Oximetry (%) Assessment: 12/25/16 12:41 WITHDRAWAL SX Plan: CONTINUE DETOX
[2016-12-25] MEDS: chlordiazePOXIDE HCL 10 MG CAPSULE PO SCH ×2 (17:14→22:43)
[2016-12-25] MEDS: THIAMINE HCL 100 MG TABLET (FP) PO SCH (22:42)
[2016-12-25] MEDS: ZOLPIDEM TARTRATE 10 MG TABLET (PARK CARE ONLY) PO PRN (22:43)
[2016-12-26] MEDS: hydrOXYzine PAMOATE 25 MG CAPSULE (FP) PO PRN (02:33)
[2016-12-26] MEDS: chlordiazePOXIDE HCL 10 MG CAPSULE PO SCH (05:56)
[2016-12-26] MEDS: FUROSEMIDE PO SCH (05:57)
[2016-12-26 07:17] VITALS: BP 128/90; PULSE 75; TEMP 98.1
--- NOTE | 2016-12-26 08:50 | DS ---
[facility] Detox Discharge Summary Admission Date: 12/22/16 Discharge Date: 12/26/16 - History Present History: Alcohol Dependence Additional Comments: DETOX COMPLETED. ALERT O X 3. NAD. PT INSTRUCTED TO F/U WITH PMD AT [facility] MANAGEMENT OF MEDICAL CONDITIONS. Pertinent Past History: HX CONGENITAL TRANSPOSITION OF GREAT VESSELS S/P CARDIAC DEFIBRILLATOR IN SITU AFIB HTN SEIZURES GERD - Physical Exam Results Vital Signs: Vital Signs Temperature 98.1 F 12/26/16 07:16 Pulse Rate 75 12/26/16 07:16 Respiratory Rate 16 12/26/16 07:16 Blood Pressure 128/90 12/26/16 07:16 O2 Sat by Pulse Oximetry (%) Pertinent Admission Physical Exam Findings: WITHDRAWAL SX - Treatment Hospital Course: Detox Protocol Followed, Detoxed Safely, Responded well, Discharged Condition Good, Rehab Referral Accepted Patient has Accepted a Rehab Referral to: [facility]) OUTPT - Medication Discharge Medications: Ambulatory Orders Dabigatran Etexilate Mesylate [Pradaxa -] 150 mg PO BID 10/14/16 Folic Acid 1 mg PO DAILY 10/14/16 Furosemide [Lasix -] 40 mg PO BID 10/14/16 Lisinopril 10 mg PO DAILY 10/14/16 Sotalol HCl [Sotalol] 120 mg PO BID 10/14/16 Pantoprazole Sodium [Protonix -] 40 mg PO DAILY tablet.ec 12/02/16 - Diagnosis (1) Alcohol dependence with uncomplicated withdrawal Status: Acute (2) Cardiac defibrillator in situ Status: Chronic (3) GERD (gastroesophageal reflux disease) Status: Chronic Qualifiers: Esophagitis presence: without esophagitis Qualified Code(s): K21.9 - Gastro-esophageal reflux disease without esophagitis (4) History of atrial fibrillation Status: Chronic (5) History of transposition of great vessels Status: Chronic (6) Hypertension Status: Chronic Qualifiers: Hypertension type: essential hypertension Qualified Code(s): I10 - Essential (primary) hypertension (7) Seizure Status: Chronic - AMA Did Patient Leave Against Medical Advice: No
[2016-12-26] MEDS ORDERED: LISINOPRIL 10 MG PO SCH (10:00)
== END 2016-12-26 08:44 | disposition home or self-care (01) | DRG 775 ==
LOC: YASAS 12:21 → Y3N 15:09
PROVIDERS: ADMIT Internal Medicine; ATTEND Internal Medicine
PROC: HZ2ZZZZ Detoxification Services for Substance Abuse Treatment (ICD-10-PCS; principal; 2016-12-26)
DX: F10.230 Alcohol dependence with withdrawal, uncomplicated (principal); G47.00 Insomnia, unspecified; I10 Essential (primary) hypertension; I48.91 Unspecified atrial fibrillation; Z79.01 Long term (current) use of anticoagulants; Z95.810 Presence of automatic (implantable) cardiac defibrillator; Q20.3 Discordant ventriculoarterial connection
CPT/HCPCS: 36415; 80053; 81003; 81015; 82550; 82553; 84484; 85027; 86593; 87389; 93005; 93010

== ENCOUNTER 2017-02-01 10:27 | Inpatient (IN) | payer BC ==
[2017-02-01 12:12] VITALS: BMI 22.7
--- NOTE | 2017-02-01 13:20 | HP ---
CIWA Score - CIWA Score Nausea/Vomitin-Int. Nausea w/Dry Heave Muscle Tremors: 4-Moderate,w/Arms Extend Anxiety: 4-Mod. Anxious/Guarded Agitation: 1-Slight > Activity Paroxysmal Sweats: 1-Minimal Palms Moist Orientation: 0-Oriented Tacttile Disturbances: 1-Very Mild Itch/Numbness Auditory Disturbances: 1-Very Mild Visual Disturbances: 1-Very Mild Sensitivity Headache: 2-Mild CIWA-Ar Total Score: 19 Admission ROS BHS - HPI Chief Complaint: I can tell when I need help, when I've gone too far and I need help now. Allergies/Adverse Reactions: Allergies Allergy/AdvReac Type Severity Reaction Status Date / Time No Known Allergies Allergy Verified 12/22/16 14:00 History of Present Illness: 36 yo gentleman here for detox from alcohol - one of several admissions, history of drug related seizures and black outs. Last time here in december 2016. Receives cardiac care at [facility] - s/p cardiac surgery and implanted defiibriallator, hx afib, states compliant with cardiac care and meds. Exam Limitations: Clinical Condition - Ebola screening Have you traveled outside of the country in the last 21 days: No Have you had contact with anyone from an Ebola affected area: No Have you been sick,other than usual withdrawal symptoms: No Do you have a fever: No - Review of Systems Constitutional: Chills, Loss of Appetite, Night Sweats, Changes in sleep, Weakness EENT: reports: No Symptoms Reported Respiratory: reports: No Symptoms reported Cardiac: reports: No Symptoms Reported GI: reports: Indigestion : reports: Frequency Musculoskeletal: reports: Back Pain Integumentary: reports: No Symptoms Reported Neuro: reports: Headache, Seizure Endocrine: reports: No Symptoms Reported Psychiatric: reports: Judgement Intact, Mood/Affect Appropiate, Orientated x3, Anxious Other Systems: Reviewed and Negative Patient History - Patient Medical History Hx Anemia: No Hx Asthma: No Hx Chronic Obstructive Pulmonary Disease (COPD): No Hx Cancer: No Hx Cardiac Disorders: Yes (Afibrillation,s/p srgery for transposition of great vessels,s,p implanted c) Hx Hypertension: Yes Hx Hypercholesterolemia: No Hx Pacemaker: No HX Cerebrovascular Accident: No Hx Seizures: Yes (not sure thinks summer 2015) Hx Diabetes: No Hx Gastrointestinal Disorders: No Hx Liver Disease: No Hx Genitourinary Disorders: No Hx Sexually Transmitted Disorders: No Hx Renal Disease (ESRD): No Hx Thyroid Disease: No Hx Human Immunodeficiency Virus (HIV): No (last 04/04 negative) Hx Hepatitis C: No Hx Depression: Yes (hx childhood dx with ADHD with depression - stopped med on own age 18) Hx Suicide Attempt: No Hx Bipolar Disorder: No Hx Schizophrenia: No - Patient Surgical History Past Surgical History: Yes Hx Neurologic Surgery: No Hx Cataract Extraction: No Hx Cardiac Surgery: Yes (AICD 02/02; OPEN SURGERY AT AGE 1 YEAR) Hx Lung Surgery: No Hx Breast Surgery: No Hx Breast Biopsy: No Hx Abdominal Surgery: No Hx Appendectomy: No Hx Cholecystectomy: No Hx Genitourinary Surgery: No Hx Section: No Hx Orthopedic Surgery: No Other Surgical History: corrective surgery for transposition of great vessels at age 11 year old at Anesthesia Reaction: No - PPD History Previous Implant?: Yes Documented Results: Negative w/proof Implanted On Prior [facility] Admission?: No Date: 10/16/16 PPD to be Administered?: No - Reproductive History Patient is a Female of Child Bearing Age (11 -55 yrs old): No (male) - Smoking Cessation Smoking history: Never smoked Have you smoked in the past 12 months: No Hx Chewing Tobacco Use: No Initiated information on smoking cessation: No - Substance & Tx. History Hx Alcohol Use: Yes Hx Substance Use: No Substance Use Type: Alcohol Hx Substance Use Treatment: Yes (detox, rehab) - Substances Abused Alcohol Route: Oral Frequency: Daily Amount used: 1.5pints vodka Age of first use: 21 Date of Last Use: 02/01/17 Family Disease History - Family Disease History Family Disease History: Heart Disease: Father (alcohol ,), Other: Father , Mother (alcohol, ), Brother (anemia, etoh) Admission Physical Exam BHS - Vital Signs Vital Signs: Vital Signs - 24 hr 02/01/17 12:10 Temperature 96.3 F L Pulse Rate 71 Respiratory 18 Rate Blood Pressure 116/77 - Physical General Appearance: Yes: Nourished, Appropriately Dressed, Mild Distress, Anxious HEENTM: Yes: Hearing grossly Normal, Normal ENT Inspection, Normocephalic, Normal Voice, Pharynx Normal Respiratory: Yes: Normal Breath Sounds, No Respiratory Distress Neck: Yes: No masses,lesions,Nodules, Supple Breast: Yes: Breast Exam Deferred Cardiology: Yes: Regular Rhythm, Regular Rate, Surgical Scar, Other (hx surgery) Abdominal: Yes: Soft Genitourinary: Yes: Frequency Back: Yes: Normal Inspection Musculoskeletal: Yes: full range of Motion, Gait Steady Extremities: Yes: Normal Inspection, Non-Tender Neurological: Yes: Fully Oriented, Alert, Normal Mood/Affect Integumentary: Yes: Normal Color, Warm Lymphatic: Yes: Within Normal Limits - Diagnostic (1) Alcohol dependence with uncomplicated withdrawal Current Visit: Yes Status: Chronic (2) Cardiac defibrillator in situ Current Visit: Yes Status: Chronic (3) GERD (gastroesophageal reflux disease) Current Visit: Yes Status: Chronic Qualifiers: Esophagitis presence: without esophagitis Qualified Code(s): K21.9 - Gastro-esophageal reflux disease without esophagitis (4) History of atrial fibrillation Current Visit: Yes Status: Chronic (5) History of transposition of great vessels Current Visit: Yes Status: Chronic (6) Hypertension Current Visit: Yes Status: Chronic Qualifiers: Hypertension type: essential hypertension Qualified Code(s): I10 - Essential (primary) hypertension (7) Seizure Current Visit: Yes Status: Chronic (8) Syncope Current Visit: Yes Status: Chronic Qualifiers: Syncope type: unspecified Qualified Code(s): R55 - Syncope and collapse Cleared for Admission S - Detox or Rehab [facility] Level of Care: Medically Managed Detox Regimen/Protocol: Librium [facility] Breath Alcohol Content Breath Alcohol Content: 0.167 Urine Drug Screen - Results Drug Screen Negative: No Urine Drug Screen Results: BZO-Benzodiazepines, TCA-Tricyclic Antidepress
[2017-02-01] MEDS ORDERED: chlordiazePOXIDE HCL 25 MG CAPSULE PO ONE (13:25)
[2017-02-01] MEDS ORDERED: P-EPHED 60MG/TRIPROLIDI 2.5MG TABLET PO PRN (13:25)
[2017-02-01] MEDS ORDERED: MAGNESIUM CITRATE 300 ML BOTTLE PO PRN (13:25)
[2017-02-01] MEDS ORDERED: guaiFENesin/D-METHORPHAN HB 10 ML UNIT-DOSE CUPS PO PRN (13:25)
[2017-02-01] MEDS ORDERED: MENTHOL/PHENOL 1 EACH UD MM PRN (13:25)
[2017-02-01] MEDS ORDERED: MAGNESIUM HYDROX 2400MG/30ML ORAL SUSPENSION 30 ML CUP PO PRN (13:25)
[2017-02-01] MEDS ORDERED: MAG HYDROX/AL HYDROX/SIMETH 30 ML UNIT-DOSE CUP PO PRN (13:25)
[2017-02-01] MEDS ORDERED: ACETAMINOPHEN 325 MG TABLET (FP) PO PRN (13:25)
[2017-02-01] MEDS ORDERED: LOPERAMIDE HCL 2 MG CAPSULE PO PRN (13:25)
[2017-02-01] MEDS: chlordiazePOXIDE HCL 25 MG CAPSULE PO SCH ×2 (17:15→22:06)
[2017-02-01 17:24] LABS: URINE APPEARANCE CLEAR; URINE BILIRUBIN NEGATIVE (NEGATIVE); URINE COLOR LTYELLOW; URINE GLUCOSE (UA) NEGATIVE (NEGATIVE); URINE KETONE NEGATIVE (NEGATIVE); URINE LEUK ESTERASE NEGATIVE (NEGATIVE); URINE NITRITE NEGATIVE (NEGATIVE); URINE UROBILINOGEN NEGATIVE E.U./dl (0.2-1.0)
[2017-02-01 17:25] LABS: URINE BLOOD 1+ (NEGATIVE); URINE PROTEIN 2+ (NEGATIVE)
[2017-02-01 17:29] LABS: URINE HYALINE CAST 4 /lpf; URINE MUCUS RARE; URINE RBC <1 /hpf (0-3); URINE WBC <1 /hpf (3-5)
[2017-02-01] MEDS ORDERED: FUROSEMIDE 40 MG TABLET (FP) PO SCH (22:00)
[2017-02-01] MEDS: THIAMINE HCL 100 MG TABLET (FP) PO SCH (22:06)
[2017-02-01] MEDS: diphenhydrAMINE HCL 50 MG CAPSULE PO PRN (22:08)
[2017-02-01] MEDS: DABIGATRAN ETEXILATE MESYLATE 150 MG CAPSULE PO SCH (22:55)
[2017-02-01] MEDS: SOTALOL HCL 120 MG PO SCH (22:55)
[2017-02-02] MEDS: chlordiazePOXIDE HCL 25 MG CAPSULE PO SCH ×4 (05:16→22:18)
[2017-02-02] MEDS: FUROSEMIDE 40 MG TABLET (FP) PO SCH ×2 (05:16→14:03)
[2017-02-02] MEDS: hydrOXYzine PAMOATE 50 MG CAPSULE (FP) PO PRN (08:49)
[2017-02-02] MEDS: LISINOPRIL 10 MG TABLET (FP) PO SCH (10:00)
[2017-02-02] MEDS: DABIGATRAN ETEXILATE MESYLATE 150 MG CAPSULE PO SCH ×2 (10:00→22:18)
[2017-02-02] MEDS: PRENATAL VITAMINS W/ FOLIC ACID TABLET (FP) PO SCH (10:20)
[2017-02-02] MEDS: PANTOPRAZOLE 40 MG TABLET (FP) PO SCH (10:20)
[2017-02-02] MEDS: SOTALOL HCL 120 MG PO SCH ×2 (10:21→22:17)
[2017-02-02 10:42] LABS: MCH 23.6 pg (25.7-33.7); MCHC 31.4 g/dl (32.0-35.9); MEAN PLT VOLUME 8.3 fl (7.5-11.1); PLATELET COUNT 230 K/MM3 (134-434); RDW 16.2 % (11.9-15.9); WHITE BLOOD COUNT 2.2 K/mm3 (4.0-10.0)
[2017-02-02 11:06] LABS: CALCIUM 8.5 mg/dL (8.5-10.1)
[2017-02-02 11:13] LABS: ALBUMIN 3.1 g/dl (3.4-5.0); ALK PHOS 219 U/L (45-117); ANION GAP 13 (8-16); CO2 25 mmol/L (21-32); COCKROFT - GAULT 86.36; CREATININE 1.1 mg/dL (0.7-1.3); GLUCOSE,RANDOM 163 mg/dL (74-106); SGOT/AST 102 U/L (15-37); SGPT/ALT 97 U/L (12-78); TOT PROT 7.2 g/dl (6.4-8.2)
[2017-02-02 12:07] LABS: HIV 1 & 2 AB NEGATIVE; HIV 1 AGp24 NEGATIVE
--- NOTE | 2017-02-02 12:12 | PN ---
S CIWA - CIWA Score Nausea/Vomitin Muscle Tremors: 3 Anxiety: 3 Agitation: 3 Paroxysmal Sweats: 1-Minimal Palms Moist Orientation: 0-Oriented Tacttile Disturbances: 1-Very Mild Itch/Numbness Auditory Disturbances: 1-Very Mild Visual Disturbances: 1-Very Mild Sensitivity Headache: 2-Mild CIWA-Ar Total Score: 18 S Progress Note (SOAP) Subjective: ALERT,IRRITABLE,ANXIOUS,TREMOR,INTERRUPTED SLEEP, Objective: 02/02/17 12:07 Vital Signs Temperature 97.5 F L 02/02/17 10:38 Pulse Rate 87 02/02/17 10:38 Respiratory Rate 18 02/02/17 10:38 Blood Pressure 132/94 02/02/17 10:38 O2 Sat by Pulse Oximetry (%) EKG NSR,LVH,RBBB NO CHEST PAIN,NO SOB,NO DIZZINESS Laboratory Last Values WBC 2.2 K/mm3 (4.0-10.0) L 02/02/17 08:00 RBC 5.88 M/mm3 (4.00-5.60) H 02/02/17 08:00 Hgb 13.9 GM/dL (11.7-16.9) 02/02/17 08:00 Hct 44.1 % (35.4-49) 02/02/17 08:00 MCV 75.0 fl (80-96) L 02/02/17 08:00 MCHC 31.4 g/dl (32.0-35.9) L 02/02/17 08:00 RDW 16.2 % (11.9-15.9) H 02/02/17 08:00 Plt Count 230 K/MM3 (134-434) 02/02/17 08:00 MPV 8.3 fl (7.5-11.1) 02/02/17 08:00 Sodium 135 mmol/L (136-145) L 02/02/17 08:00 Potassium 3.8 mmol/L (3.5-5.1) 02/02/17 08:00 Chloride 97 mmol/L (98-107) L 02/02/17 08:00 Carbon Dioxide 25 mmol/L (21-32) 02/02/17 08:00 Anion Gap 13 (8-16) 02/02/17 08:00 BUN 24 mg/dL (7-18) H 02/02/17 08:00 Creatinine 1.1 mg/dL (0.7-1.3) 02/02/17 08:00 Creat Clearance w eGFR > 60 (>60) 02/02/17 08:00 Random Glucose 163 mg/dL (74-106) H D 02/02/17 08:00 Calcium 8.5 mg/dL (8.5-10.1) 02/02/17 08:00 Total Bilirubin 1.0 mg/dL (0.2-1.0) D 02/02/17 08:00 AST 102 U/L (15-37) H 02/02/17 08:00 ALT 97 U/L (12-78) H D 02/02/17 08:00 Alkaline Phosphatase 219 U/L (45-117) H 02/02/17 08:00 Total Protein 7.2 g/dl (6.4-8.2) 02/02/17 08:00 Albumin 3.1 g/dl (3.4-5.0) L 02/02/17 08:00 Urine Color Ltyellow 02/01/17 17:09 Urine Appearance Clear 02/01/17 17:09 Urine pH 5.0 (5.0-8.0) 02/01/17 17:09 Ur Specific [place] 1.016 (1.001-1.035) 02/01/17 17:09 Urine Protein 2+ (NEGATIVE) H 02/01/17 17:09 Urine Glucose (UA) Negative (NEGATIVE) 02/01/17 17:09 Urine Ketones Negative (NEGATIVE) 02/01/17 17:09 Urine Blood 1+ (NEGATIVE) H 02/01/17 17:09 Urine Nitrite Negative (NEGATIVE) 02/01/17 17:09 Urine Bilirubin Negative (NEGATIVE) 02/01/17 17:09 Urine Urobilinogen Negative E.U./dl (0.2-1.0) 02/01/17 17:09 Ur Leukocyte Esterase Negative (NEGATIVE) 02/01/17 17:09 Urine RBC <1 /hpf (0-3) 02/01/17 17:09 Urine WBC <1 /hpf (3-5) 02/01/17 17:09 Ur Epithelial Cells Rare /hpf (FEW) 02/01/17 17:09 Hyaline Casts 4 /lpf 02/01/17 17:09 Urine Mucus Rare 02/01/17 17:09 RPR Titer Nonreactive (NONREACTIVE) 02/02/17 08:00 HIV 1&2 Antibody Screen Negative 02/02/17 09:00 HIV P24 Antigen Negative 02/02/17 09:00 Assessment: 02/02/17 12:11 WITHDRAWAL SYMPTOM Plan: CONTINUE DETOX,D/C TYLENOL,LEUKOPENIA,REPEAT CBC,CMP,INR IN AM
[2017-02-02] MEDS: chlordiazePOXIDE HCL 25 MG CAPSULE PO PRN (14:09)
[2017-02-02] MEDS: diphenhydrAMINE HCL 50 MG CAPSULE PO PRN (22:18)
[2017-02-02] MEDS: THIAMINE HCL 100 MG TABLET (FP) PO SCH (22:18)
[2017-02-03] MEDS: chlordiazePOXIDE HCL 25 MG CAPSULE PO SCH ×2 (05:38→10:37)
[2017-02-03] MEDS: FUROSEMIDE 40 MG TABLET (FP) PO SCH ×2 (05:38→15:08)
--- NOTE | 2017-02-03 08:45 | EKG ---
Test Reason : Blood Pressure : / mmHG Vent. Rate : 076 BPM Atrial Rate : 076 BPM P-R Int : 188 ms QRS Dur : 164 ms QT Int : 488 ms P-R-T Axes : 025 111 -29 degrees QTc Int : 549 ms NORMAL SINUS RHYTHM RIGHT BUNDLE BRANCH BLOCK LEFT POSTERIOR FASCICULAR BLOCK BIFASCICULAR BLOCK LEFT VENTRICULAR HYPERTROPHY WITH REPOLARIZATION ABNORMALITY POSSIBLE INFERIOR INFARCT (CITED ON OR BEFORE 29-NOV-2016) ANTERIOR INFARCT (CITED ON OR BEFORE 23-DEC-2016) ABNORMAL ECG WHEN COMPARED WITH ECG OF 23-DEC-2016 10:49, COMPARED TO EKG NO SIGNIFICANT CHANGE IS FOUND Confirmed by DORI SANCHEZ MD ([id number]) on 02/03/2017 8:44:33 AM Referred By: Confirmed By:DORI SANCHEZ MD
--- NOTE | 2017-02-03 09:25 | PN ---
S CIWA - CIWA Score Nausea/Vomitin Muscle Tremors: 3 Anxiety: 3 Agitation: 2 Paroxysmal Sweats: 1-Minimal Palms Moist Orientation: 0-Oriented Tacttile Disturbances: 1-Very Mild Itch/Numbness Auditory Disturbances: 1-Very Mild Visual Disturbances: 1-Very Mild Sensitivity Headache: 2-Mild CIWA-Ar Total Score: 17 BHS Progress Note (SOAP) Subjective: ALERT,IRRITABLE,ANXIOUS,INTERRUPTED SLEEP,TREMOR Objective: 02/03/17 09:23 Vital Signs Temperature 97.7 F 02/03/17 06:00 Pulse Rate 67 02/03/17 06:00 Respiratory Rate 18 02/03/17 06:00 Blood Pressure 125/90 02/03/17 06:00 O2 Sat by Pulse Oximetry (%) REPEAT CBC,CMP PENDING NO CHEST PAIN,NO SOB,NO DIZZINESS Assessment: 02/03/17 09:24 WITHDRAWAL SYMPTOM Plan: CONTINUE DETOX,
--- NOTE | 2017-02-03 09:35 | PN ---
[facility] Progress Note Note: PATIENT WOULD LIKE TO BE ON REGULAR DIET
[2017-02-03 10:16] LABS: MCH 23.9 pg (25.7-33.7); MEAN CELL VOLUME 74.5 fl (80-96); MEAN PLT VOLUME 8.1 fl (7.5-11.1); PLATELET COUNT 209 K/MM3 (134-434); RDW 16.7 % (11.9-15.9); WHITE BLOOD COUNT 2.6 K/mm3 (4.0-10.0)
[2017-02-03] MEDS: PANTOPRAZOLE 40 MG TABLET (FP) PO SCH (10:37)
[2017-02-03] MEDS: PRENATAL VITAMINS W/ FOLIC ACID TABLET (FP) PO SCH (10:37)
[2017-02-03] MEDS: SOTALOL HCL 120 MG PO SCH ×2 (10:37→22:22)
[2017-02-03] MEDS: LISINOPRIL 10 MG TABLET (FP) PO SCH (10:37)
[2017-02-03] MEDS: DABIGATRAN ETEXILATE MESYLATE 150 MG CAPSULE PO SCH ×2 (10:38→22:50)
[2017-02-03 10:43] LABS: INR 1.15 (0.82-1.09); PROTHROMBIN TIME (PATIENT) 12.7 SEC (9.98-11.88)
[2017-02-03 10:44] LABS: ALBUMIN 3.1 g/dl (3.4-5.0); ALK PHOS 233 U/L (45-117); ANION GAP 10 (8-16); BILIRUBIN,TOTAL 1.3 mg/dL (0.2-1.0); CALCIUM 8.7 mg/dL (8.5-10.1); CO2 29 mmol/L (21-32); COCKROFT - GAULT 73.07; CREATININE 1.3 mg/dL (0.7-1.3); GLUCOSE,RANDOM 99 mg/dL (74-106); SGOT/AST 113 U/L (15-37); SGPT/ALT 88 U/L (12-78); TOT PROT 7.2 g/dl (6.4-8.2)
--- NOTE | 2017-02-03 13:19 | CONSULT ---
[id number] [facility] Identifying data: This is 36 years old male with no psychiatric hospitalization history intoxicated with: Alcohol, [id number], Nicotine Substance Abuse History: - Smoking Cessation. Smoking history: Never smoked. Have you smoked in the past 12 months: No. Hx Chewing Tobacco Use: No. Initiated information on smoking cessation: No. - Substance & Tx. History. Hx Alcohol Use: Yes. Hx Substance Use: No. Substance Use Type: Alcohol. Hx Substance Use Treatment: Yes (detox, rehab). - Substances Abused. Alcohol. Route: Oral. Frequency: Daily. Amount used: 1.5pints vodka. Age of first use: 21. Date of Last Use: 02/01/17 Medical History: Cardiac defibrillator installment, GERD, Chest pain history, A.Fib history, Cardiopathy history Psychiatric History: Patient rteportys insokmnia, taking prior to admnission: Ambien 10mg po qhs reports Physical/Sexual Abuse/Trauma History: Denies Additional Comment: Ambien 10mg po qhs Mental Status Exam - Mental Status Exam Alert and Oriented to: Person Cognitive Function: Fair Mood: Sad Affect: Flat Patient Behavior: Sedated, Agitated Speech Pattern: Appropriate Voice Loudness: Mildly Soft/Quiet Thought Process: Circumstantial Thought Disorder: Being Controlled Hallucinations: Denies Suicidal Ideation: Denies Homicidal Ideation: Denies Insight/Judgement: Impaired Sleep: Fair Appetite: Fair Muscle strength/Tone: Mild Hypotonicity Gait/Station: Shuffling Additional Comments: Ambien 10mg po qhs Psychiatric Findings - Problem List ([place] 1, 2,3) (1) Alcohol dependence with uncomplicated withdrawal Current Visit: Yes Status: Chronic (2) Alcohol induced insomnia Current Visit: Yes Status: Acute (3) Alcohol-induced anxiety disorder Current Visit: Yes Status: Acute - Initial Treatment Plan Initial Treatment Plan: Ambien 10mg po qhs
--- NOTE | 2017-02-03 13:27 | CONSULT ---
[facility] Psychiatric Consult - Data Date of interview: 02/03/17 Admission source: [facility] Identifying data: This is 36 years old male with no history of psychiatric hoispitalizations, m u;tiple medical problem history, intoxicated with Alcohol Psychiatric Findings - Problem List ([place] 1, 2,3) (1) Alcohol dependence with uncomplicated withdrawal Current Visit: Yes Status: Chronic
[2017-02-03] MEDS: chlordiazePOXIDE HCL 25 MG CAPSULE PO PRN (15:10)
[2017-02-03] MEDS: chlordiazePOXIDE 5 MG CAPSULE PO SCH ×2 (17:55→22:22)
[2017-02-03] MEDS: ZOLPIDEM TARTRATE 10 MG TABLET (PARK CARE ONLY) PO PRN (22:22)
[2017-02-03] MEDS: THIAMINE HCL 100 MG TABLET (FP) PO SCH (22:22)
[2017-02-04] MEDS: chlordiazePOXIDE 5 MG CAPSULE PO SCH ×2 (05:35→10:06)
[2017-02-04] MEDS: FUROSEMIDE 40 MG TABLET (FP) PO SCH ×2 (05:36→14:01)
[2017-02-04] MEDS: hydrOXYzine PAMOATE 50 MG CAPSULE (FP) PO PRN ×3 (05:38→17:59)
--- NOTE | 2017-02-04 09:17 | PN ---
S Progress Note (SOAP) Subjective: ALERT,IRRITABLE,ANXIOUS,INTERRUPTED SLEEP Objective: 02/04/17 09:16 Vital Signs Temperature 98.2 F 02/04/17 06:05 Pulse Rate 64 02/04/17 06:05 Respiratory Rate 16 02/04/17 06:05 Blood Pressure 102/67 02/04/17 06:05 O2 Sat by Pulse Oximetry (%) Assessment: 02/04/17 09:16 WITHDRAWAL SYMPTOM Plan: CONTINUE DETOX,DISCHARGE IN AM
[2017-02-04] MEDS: DABIGATRAN ETEXILATE MESYLATE 150 MG CAPSULE PO SCH ×2 (10:05→22:06)
[2017-02-04] MEDS: PANTOPRAZOLE 40 MG TABLET (FP) PO SCH (10:05)
[2017-02-04] MEDS: SOTALOL HCL 120 MG PO SCH ×2 (10:06→22:06)
[2017-02-04] MEDS: LISINOPRIL 10 MG TABLET (FP) PO SCH (10:06)
[2017-02-04] MEDS: PRENATAL VITAMINS W/ FOLIC ACID TABLET (FP) PO SCH (10:06)
[2017-02-04] MEDS: chlordiazePOXIDE HCL 10 MG CAPSULE PO SCH ×2 (17:58→22:07)
[2017-02-04] MEDS: ZOLPIDEM TARTRATE 10 MG TABLET (PARK CARE ONLY) PO PRN (22:07)
[2017-02-04] MEDS: THIAMINE HCL 100 MG TABLET (FP) PO SCH (22:07)
[2017-02-04 23:13] VITALS: BP 109/68
[2017-02-05] MEDS: hydrOXYzine PAMOATE 50 MG CAPSULE (FP) PO PRN (03:56)
[2017-02-05] MEDS: chlordiazePOXIDE HCL 10 MG CAPSULE PO SCH (05:10)
[2017-02-05 05:43] VITALS: PULSE 69; TEMP 97.1
[2017-02-05] MEDS: FUROSEMIDE 40 MG TABLET (FP) PO SCH (07:11)
--- NOTE | 2017-02-05 08:12 | PN ---
S Progress Note (SOAP) Subjective: ALERT,NO COMPLAINT Objective: 02/05/17 08:10 Vital Signs Temperature 97.1 F L 02/05/17 05:43 Pulse Rate 69 02/05/17 05:43 Respiratory Rate 16 02/05/17 05:43 Blood Pressure 109/68 02/05/17 05:43 O2 Sat by Pulse Oximetry (%) Assessment: 02/05/17 08:10 DETOX COMPLETED,NO WITHDRAWAL SYMPTOM Plan: DISCHARGE TODAY,FOLLOW UP WITH AFTER CARE PROGRAM ARRANGEMENT AND PMD FOR MEDICAL PROBLEM
--- NOTE | 2017-02-05 08:17 | DS ---
[facility] Detox Discharge Summary Admission Date: 02/01/17 Discharge Date: 02/05/17 - History Present History: Alcohol Dependence Additional Comments: FOLLOW UP WITH AFTER CARE PROGRAM ARRANGEMENT AND PMD AND NURSE ORTHOPEDIC FOR FOLLOW UP ON MEDICAL MANAGEMENT Pertinent Past History: IMPLANTED CARDIAC DEFIBRILLATOR IN PLACE GERD HISTORY OF ATRIAL FIBRILLATION HISTORY OF SURGERY FOR TRANSPOSITION OF [place]LELS HYPERTENSION SEIZURE SYNCOPE - Physical Exam Results Vital Signs: Vital Signs Temperature 97.1 F L 02/05/17 05:43 Pulse Rate 69 02/05/17 05:43 Respiratory Rate 16 02/05/17 05:43 Blood Pressure 109/68 02/05/17 05:43 O2 Sat by Pulse Oximetry (%) Pertinent Admission Physical Exam Findings: WITHDRAWAL SYMPTOM - Treatment Hospital Course: Detox Protocol Followed, Detoxed Safely, Responded well, Discharged Condition Good Patient has Accepted a Rehab Referral to: DECLINED - Medication Discharge Medications: Ambulatory Orders Dabigatran Etexilate Mesylate [Pradaxa -] 150 mg PO BID 10/14/16 Folic Acid 1 mg PO DAILY 10/14/16 Furosemide [Lasix -] 40 mg PO BID 10/14/16 Lisinopril 10 mg PO DAILY 10/14/16 Sotalol HCl [Sotalol] 120 mg PO BID 10/14/16 Pantoprazole Sodium [Protonix -] 40 mg PO DAILY tablet.ec 12/02/16 Zolpidem Tartrate [Ambien] 10 mg PO HS PRN #14 tablet MDD 10 02/03/17 - AMA Did Patient Leave Against Medical Advice: No
== END 2017-02-05 09:05 | disposition home or self-care (01) | DRG 775 ==
LOC: YASAS 10:27 → Y6N 15:10
PROVIDERS: ADMIT Internal Medicine; ATTEND Internal Medicine Addiction Medicine
PROC: HZ2ZZZZ Detoxification Services for Substance Abuse Treatment (ICD-10-PCS; principal; 2017-02-05)
DX: F10.230 Alcohol dependence with withdrawal, uncomplicated (principal); F10.280 Alcohol dependence with alcohol-induced anxiety disorder; F10.282 Alcohol dependence with alcohol-induced sleep disorder; I10 Essential (primary) hypertension; I48.91 Unspecified atrial fibrillation; R55 Syncope and collapse; Q20.3 Discordant ventriculoarterial connection; Z95.810 Presence of automatic (implantable) cardiac defibrillator
CPT/HCPCS: 36415; 80053; 81003; 81015; 85027; 85610; 86593; 87389; 93005; 93010

== ENCOUNTER 2017-06-26 08:28 | Inpatient (IN) | payer BC ==
[2017-06-26 09:06] VITALS: BMI 24.1
--- NOTE | 2017-06-26 12:22 | HP ---
CIWA Score - CIWA Score Nausea/Vomitin (N/V/D) Muscle Tremors: 4-Moderate,w/Arms Extend Anxiety: 4-Mod. Anxious/Guarded Agitation: 3 Paroxysmal Sweats: 1-Minimal Palms Moist Orientation: 0-Oriented Tacttile Disturbances: 3-Moderate Itch/Numb/Burn Auditory Disturbances: 0-None Visual Disturbances: 0-None Headache: 1-Very Mild CIWA-Ar Total Score: 21 Admission ROS BHS - HPI Chief Complaint: DETOX TX FOR ALCOHOL DEPENDENCE/WITHDRAWALS SX. Allergies/Adverse Reactions: Allergies Allergy/AdvReac Type Severity Reaction Status Date / Time No Known Allergies Allergy Verified 06/26/17 09:55 History of Present Illness: 36 Y/O AA/MALE WITH A HX OF ALCOHOL DEPENDENCE SEEKING DETOX TX. PT STATES HE WENT TO [facility] YESTERDAY FOR CHEST PAIN, NAUSEA,VOMITING, TREMORS, SWEATS AND LOWER BACK PAIN AFTER 4 DAYS OF ALCOHOL BINGING AND COULDN' T STOP ON HIS OWN. PT STATES HE WAS STABILIZED AND CHEST PAIN RESOLVED BUT NOT THE WITHDRAWAL SX, WAS DISCHARGED AND REFERRED TO DETOX. REPORTS HE WENT HOME INSTEAD AND CONTINUED TO DRINK TILL THIS MORNING. Exam Limitations: Clinical Condition, Intoxication - Ebola screening Have you traveled outside of the country in the last 21 days: No Have you had contact with anyone from an Ebola affected area: No Have you been sick,other than usual withdrawal symptoms: No - Review of Systems Constitutional: Chills, Loss of Appetite, Night Sweats, Changes in sleep EENT: reports: Dental Problems (BOKEN TEETH) Respiratory: reports: No Symptoms reported Cardiac: reports: Chest Pain, Lightheadedness, Palpitations, Chest Tightness GI: reports: Constipated, Diarrhea, Nausea, Poor Appetite, Poor Fluid Intake, Vomiting : reports: No Symptoms Reported Musculoskeletal: reports: Back Pain, Muscle Pain Integumentary: reports: Dryness Neuro: reports: Headache, Seizure, Tremors, Unsteady Gait, Dizziness Endocrine: reports: No Symptoms Reported Hematology: reports: No Symptoms Reported Psychiatric: reports: Orientated x3, Anxious, Depressed, other Other Systems: Reviewed and Negative Patient History - Patient Medical History Hx Anemia: No Hx Asthma: No Hx Chronic Obstructive Pulmonary Disease (COPD): No Hx Cancer: No Hx Cardiac Disorders: Yes (open heart sx /defibrillator since 01/5016) Hx Hypertension: Yes Hx Hypercholesterolemia: No Hx Pacemaker: No HX Cerebrovascular Accident: No Hx Seizures: No Hx Diabetes: No Hx Gastrointestinal Disorders: Yes (acid reflux; NEXIUM IN THE PAST.) Hx Liver Disease: No Hx Genitourinary Disorders: No Hx Sexually Transmitted Disorders: No Hx Renal Disease (ESRD): No Hx Thyroid Disease: No Hx Human Immunodeficiency Virus (HIV): No (last 04/04 negative) Hx Hepatitis C: No Hx Depression: Yes Hx Suicide Attempt: No (DENIES) Hx Bipolar Disorder: No Hx Schizophrenia: No - Patient Surgical History Past Surgical History: Yes Hx Neurologic Surgery: No Hx Cataract Extraction: No Hx Cardiac Surgery: Yes (AICD 02/02; OPEN SURGERY AT AGE 1 YEAR) Hx Lung Surgery: No Hx Breast Surgery: No Hx Breast Biopsy: No Hx Abdominal Surgery: No Hx Appendectomy: No Hx Cholecystectomy: No Hx Genitourinary Surgery: No Hx Section: No Hx Orthopedic Surgery: No Other Surgical History: 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 History Hx Alcohol Use: Yes (VODKA) Hx Substance Use: No Substance Use Type: Alcohol Hx Substance Use Treatment: Yes (LAST TX AT [facility] -DETOX) - Substances Abused Alcohol-vodka Route: Oral Frequency: Daily Amount used: 2-3 pts. Age of first use: 22 Date of Last Use: 06/26/17 Family Disease History - Family Disease History Family Disease History: Heart Disease: Father (alcohol ,), Other: Father , Mother (alcohol, ), Brother (anemia, etoh) Admission Physical Exam BHS - Vital Signs Vital Signs: Vital Signs - 24 hr 06/26/17 09:03 Temperature 97 F L Pulse Rate 79 Respiratory 20 Rate Blood Pressure 123/90 - Physical General Appearance: Yes: Moderate Distress, Alcohol on Breath, Intoxicated, Irritable, Anxious HEENTM: Yes: EOMI, Normocephalic, JENIFFER, Pharynx Normal Respiratory: Yes: Chest Non-Tender, Lungs Clear, Normal Breath Sounds, No Respiratory Distress Breast: Yes: Breast Exam Deferred Cardiology: Yes: Regular Rhythm, Regular Rate, S1, S2, Surgical Scar (MID-THORAX ), Other (DEFIBRILLATOR IMPLANT LEFT UPPER CHEST.) Abdominal: Yes: Normal Bowel Sounds, Non Tender, Soft Genitourinary: Yes: Other (N/C) Back: Yes: Within Normal Limits Musculoskeletal: Yes: full range of Motion, Gait Steady Extremities: Yes: Normal Range of Motion, Non-Tender Neurological: Yes: signal person II-XII NML intact, Fully Oriented, Alert Integumentary: Yes: Dry, Warm Lymphatic: Yes: Within Normal Limits - Diagnostic (1) Alcohol dependence with uncomplicated withdrawal Status: Acute (2) Cardiac defibrillator in situ Status: Chronic (3) History of atrial fibrillation Status: Chronic (4) History of transposition of great vessels Status: Chronic (5) Hypertension Status: Chronic Qualifiers: Hypertension type: essential hypertension Qualified Code(s): I10 - Essential (primary) hypertension (6) Seizure Status: Chronic (7) GERD (gastroesophageal reflux disease) Status: Chronic Qualifiers: Esophagitis presence: without esophagitis Qualified Code(s): K21.9 - Gastro-esophageal reflux disease without esophagitis (8) Alcohol intoxication Status: Acute Qualifiers: Complication of substance-induced condition: uncomplicated Qualified Code(s): F10.920 - Alcohol use, unspecified with intoxication, uncomplicated Cleared for Admission [facility] - Detox or Rehab [facility] Level of Care: Medically Managed Detox Regimen/Protocol: Librium [facility] Breath Alcohol Content Breath Alcohol Content: 0.170 Urine Drug Screen - Results Drug Screen Negative: No Urine Drug Screen Results: BZO-Benzodiazepines
[2017-06-26] MEDS ORDERED: MAG HYDROX/AL HYDROX/SIMETH 30 ML UNIT-DOSE CUP PO PRN (12:47)
[2017-06-26] MEDS ORDERED: hydrOXYzine PAMOATE 50 MG CAPSULE (FP) PO PRN (12:47)
[2017-06-26] MEDS ORDERED: P-EPHED 60MG/TRIPROLIDI 2.5MG TABLET PO PRN (12:47)
[2017-06-26] MEDS ORDERED: MENTHOL/PHENOL 1 EACH UD MM PRN (12:47)
[2017-06-26] MEDS ORDERED: MAGNESIUM CITRATE 300 ML BOTTLE PO PRN (12:47)
[2017-06-26] MEDS ORDERED: diphenhydrAMINE HCL 50 MG CAPSULE PO PRN (12:47)
[2017-06-26] MEDS ORDERED: guaiFENesin/D-METHORPHAN HB 10 ML UNIT-DOSE CUPS PO PRN (12:47)
[2017-06-26] MEDS ORDERED: ACETAMINOPHEN 325 MG TABLET (FP) PO PRN (12:47)
[2017-06-26] MEDS ORDERED: LOPERAMIDE HCL 2 MG CAPSULE PO PRN (12:47)
[2017-06-26] MEDS ORDERED: MAGNESIUM HYDROX 2400MG/30ML ORAL SUSPENSION 30 ML CUP PO PRN (12:47)
[2017-06-26] MEDS ORDERED: chlordiazePOXIDE HCL 25 MG CAPSULE PO ONE (13:15)
--- NOTE | 2017-06-26 15:17 | CONSULT ---
[facility] Psychiatric Consult - Data Date of interview: 06/26/17 Admission source: [facility] Identifying data: This is 36 years old male with multiple medical problems, with no psychiatric hospitalization history intoxicated with: Alcohol Substance Abuse History: - Smoking Cessation. Smoking history: Never smoked. Have you smoked in the past 12 months: No. Hx Chewing Tobacco Use: No. Initiated information on smoking cessation: No. - Substance & Tx. History. Hx Alcohol Use: Yes (VODKA). Hx Substance Use: No. Substance Use Type: Alcohol. Hx Substance Use Treatment: Yes (LAST TX AT [facility] -DETOX). - Substances Abused. Alcohol-vodka. Route: Oral. Frequency: Daily. Amount used: 2-3 pts. Age of first use: 22. Date of Last Use: 06/26/17 Medical History: Cardiac Defobrillator in situ, A.Fib history, Seizure history, Syncope history, HTN Psychiatric History: Ptient reports insomnia, reports tyaking prior to admission : Ambien 10mg po qhs. As per chart carries Schizoaffective disorder, PTSD, patioent denies having psychotic disorder, denies taking psychiatric medicationas history, denies history of psychiatric hospitalizations Physical/Sexual Abuse/Trauma History: Denies Additional Comment: Ambien 10mg po qhs Mental Status Exam - Mental Status Exam Alert and Oriented to: Place, Person Cognitive Function: Fair Patient Appearance: Unkempt Mood: Apprehensive Affect: Mood Congruent Patient Behavior: Cooperative Speech Pattern: Appropriate Voice Loudness: Normal Thought Process: Goal Oriented Thought Disorder: Being Controlled Hallucinations: Denies Suicidal Ideation: Denies Homicidal Ideation: Denies Insight/Judgement: Fair Sleep: Difficulty falling asleep Appetite: Weight loss Muscle strength/Tone: Normal Gait/Station: Deferred Additional Comments: Ambien 10mg po qhs Psychiatric Findings - Problem List ([place] 1, 2,3) (1) Alcohol dependence with uncomplicated withdrawal Current Visit: Yes Status: Acute (2) Alcohol induced insomnia Current Visit: No Status: Acute (3) Alcohol-induced anxiety disorder Current Visit: No Status: Acute (4) Post traumatic stress disorder (PTSD) Current Visit: No Status: Acute (5) Schizoaffective disorder Current Visit: No Status: Suspected - Initial Treatment Plan Initial Treatment Plan: Ambien 10mg po qhs
[2017-06-26 16:44] LABS: MCHC 32.6 g/dl (32.0-35.9); MEAN CELL VOLUME 76.7 fl (80-96); PLATELET COUNT 294 K/MM3 (134-434); RDW 15.6 % (11.9-15.9); WHITE BLOOD COUNT 3.3 K/mm3 (4.0-10.0)
[2017-06-26] MEDS: chlordiazePOXIDE HCL 25 MG CAPSULE PO SCH ×2 (16:47→22:15)
[2017-06-26 17:14] LABS: ALBUMIN 3.5 g/dl (3.4-5.0); ANION GAP 11 (8-16); CALCIUM 8.9 mg/dL (8.5-10.1); CO2 24 mmol/L (21-32); CREATININE 1.3 mg/dL (0.7-1.3); GLUCOSE,RANDOM 82 mg/dL (74-106); SGOT/AST 228 U/L (15-37); SGPT/ALT 76 U/L (12-78)
[2017-06-26 17:16] LABS: ALK PHOS 186 U/L (45-117); BILIRUBIN,TOTAL 0.8 mg/dL (0.2-1.0)
[2017-06-26 17:18] LABS: URINE APPEARANCE CLEAR; URINE BILIRUBIN NEGATIVE (NEGATIVE); URINE BLOOD 1+ (NEGATIVE); URINE COLOR STRAW; URINE GLUCOSE (UA) NEGATIVE (NEGATIVE); URINE KETONE NEGATIVE (NEGATIVE); URINE LEUK ESTERASE NEGATIVE (NEGATIVE); URINE NITRITE NEGATIVE (NEGATIVE); URINE UROBILINOGEN NEGATIVE mg/dL (0.2-1.0)
[2017-06-26 17:21] LABS: URINE PROTEIN 2+ (NEGATIVE)
[2017-06-26 18:42] LABS: SICKLE CELL SCREEN NEGATIVE (NEGATIVE)
[2017-06-26] MEDS: SOTALOL HCL 80 MG TABLET (FP) PO SCH (22:16)
[2017-06-26] MEDS: FUROSEMIDE 40 MG TABLET (FP) PO SCH (22:16)
[2017-06-26] MEDS: THIAMINE HCL 100 MG TABLET (FP) PO SCH (22:16)
[2017-06-26] MEDS: DABIGATRAN ETEXILATE MESYLATE 150 MG CAPSULE PO SCH (22:17)
[2017-06-26] MEDS ORDERED: ZOLPIDEM TARTRATE 10 MG TABLET (PARK CARE ONLY) PO ONE (22:25)
[2017-06-27] MEDS: chlordiazePOXIDE HCL 25 MG CAPSULE PO SCH ×4 (05:18→22:31)
[2017-06-27] MEDS: chlordiazePOXIDE HCL 25 MG CAPSULE PO PRN (08:56)
--- NOTE | 2017-06-27 09:07 | EKG ---
Test Reason : Blood Pressure : / mmHG Vent. Rate : 076 BPM Atrial Rate : 076 BPM P-R Int : 170 ms QRS Dur : 164 ms QT Int : 454 ms P-R-T Axes : 032 114 -46 degrees QTc Int : 510 ms NORMAL SINUS RHYTHM RIGHT BUNDLE BRANCH BLOCK , PLUS RIGHT VENTRICULAR HYPERTROPHY LEFT POSTERIOR FASCICULAR BLOCK BIFASCICULAR BLOCK LEFT VENTRICULAR HYPERTROPHY WITH REPOLARIZATION ABNORMALITY INFERIOR INFARCT (CITED ON OR BEFORE 29-NOV-2016) ANTERIOR INFARCT (CITED ON OR BEFORE 23-DEC-2016) ABNORMAL ECG WHEN COMPARED WITH ECG OF 01-FEB-2017 16:24, QUESTIONABLE CHANGE IN INITIAL FORCES OF ANTERIOR LEADS Confirmed by NATE BOOTH MD ([id number]) on 06/27/2017 9:06:58 AM Referred By: Confirmed By:NATE BOOTH MD
[2017-06-27] MEDS: SOTALOL HCL 80 MG TABLET (FP) PO SCH ×2 (10:11→22:11)
[2017-06-27] MEDS: DABIGATRAN ETEXILATE MESYLATE 150 MG CAPSULE PO SCH ×2 (10:12→22:10)
[2017-06-27] MEDS: PRENATAL VITAMINS W/ FOLIC ACID TABLET (FP) PO SCH (10:12)
[2017-06-27] MEDS: PANTOPRAZOLE 40 MG TABLET (FP) PO SCH (10:12)
[2017-06-27] MEDS: LISINOPRIL 10 MG TABLET (FP) PO SCH (10:12)
[2017-06-27] MEDS: FUROSEMIDE 40 MG TABLET (FP) PO SCH ×2 (10:12→22:10)
[2017-06-27] MEDS ORDERED: ONDANSETRON *ODT* 4 MG TABLET SL PRN (10:35)
--- NOTE | 2017-06-27 11:56 | PN ---
S CIWA - CIWA Score Nausea/Vomitin Muscle Tremors: 4-Moderate,w/Arms Extend Anxiety: 2 Agitation: 2 Paroxysmal Sweats: 3 Orientation: 0-Oriented Tacttile Disturbances: 2-Mild Itch/Numbness/Burn Auditory Disturbances: 0-None Visual Disturbances: 0-None Headache: 3-Moderate CIWA-Ar Total Score: 19 BHS Progress Note (SOAP) Subjective: Tremors, Chills H/A, Diarrhea, Sweating, Nausea. Objective: PT. A & O X 3. NO ACUTE DISTRESS. 06/27/17 11:57 Vital Signs Temperature 97.9 F 06/27/17 11:07 Pulse Rate 88 06/27/17 11:07 Respiratory Rate 20 06/27/17 11:07 Blood Pressure 135/90 06/27/17 11:07 O2 Sat by Pulse Oximetry (%) Laboratory Tests 06/26/17 06/26/17 06/26/17 12:00 12:00 16:00 WBC 3.3 L RBC 6.38 H Hgb 15.9 D Hct 48.9 MCV 76.7 L MCH 25.0 L MCHC 32.6 RDW 15.6 Plt Count 294 D MPV 8.0 Sickle Cell Screen Negative Sodium 136 Potassium 4.7 D Chloride 101 Carbon Dioxide 24 Anion Gap 11 BUN 28 H D Creatinine 1.3 Creat Clearance w eGFR > 60 Random Glucose 82 Calcium 8.9 Total Bilirubin 0.8 D AST 228 H D ALT 76 Alkaline Phosphatase 186 H D Total Protein 8.0 Albumin 3.5 Urine Color Straw Urine Appearance Clear Urine pH 5.0 Ur Specific [place] <= 1.005 Urine Protein 2+ H Urine Glucose (UA) Negative Urine Ketones Negative Urine Blood 1+ H Urine Nitrite Negative Urine Bilirubin Negative Urine Urobilinogen Negative Ur Leukocyte Esterase Negative Urine RBC None Urine WBC None LABS NOTED. RPR RESULT PENDING. 06/27/17 11:58 Assessment: 06/27/17 11:57 WITHDRAWAL SYMPTOMS. Plan: CONTINUE DETOX. REPEAT AST, AP, BUN, AND UA FOR ADMISSION ABNORMALITIES.
[2017-06-27] MEDS: THIAMINE HCL 100 MG TABLET (FP) PO SCH (22:11)
--- NOTE | 2017-06-27 22:45 | PN ---
[facility] Progress Note Note: Psychiatry Attending's note : Asked to enter order for ambien. Complaint : insomnia. Chart reviewed. Patient is known to me. Medications revisited. Plan : Ambien 5 mg po hs prn.Ordered.
[2017-06-27] MEDS: ZOLPIDEM TARTRATE 5 MG TABLET PO PRN (22:57)
[2017-06-28] MEDS: chlordiazePOXIDE HCL 25 MG CAPSULE PO SCH ×2 (06:05→10:20)
[2017-06-28] MEDS: LISINOPRIL 10 MG TABLET (FP) PO SCH (10:20)
[2017-06-28] MEDS: SOTALOL HCL 80 MG TABLET (FP) PO SCH ×2 (10:20→22:15)
[2017-06-28] MEDS: PANTOPRAZOLE 40 MG TABLET (FP) PO SCH (10:20)
[2017-06-28] MEDS: FUROSEMIDE 40 MG TABLET (FP) PO SCH ×2 (10:20→22:13)
[2017-06-28] MEDS: DABIGATRAN ETEXILATE MESYLATE 150 MG CAPSULE PO SCH ×2 (10:20→22:13)
[2017-06-28] MEDS: PRENATAL VITAMINS W/ FOLIC ACID TABLET (FP) PO SCH (10:20)
[2017-06-28] MEDS: chlordiazePOXIDE HCL 25 MG CAPSULE PO PRN (12:42)
[2017-06-28] MEDS: chlordiazePOXIDE 5 MG CAPSULE PO SCH ×2 (17:37→22:13)
--- NOTE | 2017-06-28 19:32 | PN ---
[facility] CIWA - CIWA Score Nausea/Vomitin-No Nausea/No Vomiting Muscle Tremors: 2 Anxiety: 4-Mod. Anxious/Guarded Agitation: 1-Slight > Activity Paroxysmal Sweats: 3 Orientation: 0-Oriented Tacttile Disturbances: 2-Mild Itch/Numbness/Burn Auditory Disturbances: 0-None Visual Disturbances: 0-None Headache: 3-Moderate CIWA-Ar Total Score: 15 S Progress Note (SOAP) Subjective: Anxious, Sweating, H/A, Interrupted Sleep, Body aches. Objective: PT. A & O X 3, OBSERVED AMBULATING ON UNIT. NO ACUTE DISTRESS. 06/28/17 19:27 Vital Signs Temperature 99.0 F 06/28/17 18:27 Pulse Rate 74 06/28/17 18:27 Respiratory Rate 18 06/28/17 18:27 Blood Pressure 92/63 06/28/17 18:27 O2 Sat by Pulse Oximetry (%) Laboratory Tests 06/26/17 06/26/17 06/26/17 12:00 12:00 12:00 WBC 3.3 L RBC 6.38 H Hgb 15.9 D Hct 48.9 MCV 76.7 L MCH 25.0 L MCHC 32.6 RDW 15.6 Plt Count 294 D MPV 8.0 Sickle Cell Screen Negative Sodium 136 Potassium 4.7 D Chloride 101 Carbon Dioxide 24 Anion Gap 11 BUN 28 H D Creatinine 1.3 Creat Clearance w eGFR > 60 Random Glucose 82 Calcium 8.9 Total Bilirubin 0.8 D AST 228 H D ALT 76 Alkaline Phosphatase 186 H D Total Protein 8.0 Albumin 3.5 Urine Color Urine Appearance Urine pH Ur Specific [place] Urine Protein Urine Glucose (UA) Urine Ketones Urine Blood Urine Nitrite Urine Bilirubin Urine Urobilinogen Ur Leukocyte Esterase Urine RBC Urine WBC RPR Titer Nonreactive 06/26/17 16:00 WBC RBC Hgb Hct MCV MCH MCHC RDW Plt Count MPV Sickle Cell Screen Sodium Potassium Chloride Carbon Dioxide Anion Gap BUN Creatinine Creat Clearance w eGFR Random Glucose Calcium Total Bilirubin AST ALT Alkaline Phosphatase Total Protein Albumin Urine Color Straw Urine Appearance Clear Urine pH 5.0 Ur Specific [place] <= 1.005 Urine Protein 2+ H Urine Glucose (UA) Negative Urine Ketones Negative Urine Blood 1+ H Urine Nitrite Negative Urine Bilirubin Negative Urine Urobilinogen Negative Ur Leukocyte Esterase Negative Urine RBC None Urine WBC None RPR Titer LABS NOTED. RESULTS OF REPEAT UA PENDING. 06/28/17 19:30 Assessment: 06/28/17 19:28 WITHDRAWAL SYMPTOMS. Plan: CONTINUE DETOX.
[2017-06-28] MEDS: ZOLPIDEM TARTRATE 5 MG TABLET PO PRN (22:13)
[2017-06-28] MEDS: THIAMINE HCL 100 MG TABLET (FP) PO SCH (22:13)
[2017-06-29] MEDS: chlordiazePOXIDE 5 MG CAPSULE PO SCH (05:10)
[2017-06-29 06:40] VITALS: BP 129/91; PULSE 71; TEMP 98
[2017-06-29 10:26] LABS: ALK PHOS 149 U/L (45-117); SGOT/AST 51 U/L (15-37)
--- NOTE | 2017-06-29 13:15 | DS ---
[facility] Detox Discharge Summary Admission Date: 06/26/17 Discharge Date: 06/29/17 - History Present History: Alcohol Dependence Pertinent Past History: HTN GERD A FIB - Physical Exam Results Vital Signs: Vital Signs Temperature 98.0 F 06/29/17 06:00 Pulse Rate 71 06/29/17 06:00 Respiratory Rate 18 06/29/17 06:00 Blood Pressure 129/91 06/29/17 06:00 O2 Sat by Pulse Oximetry (%) Pertinent Admission Physical Exam Findings: Withdrawal symptoms Laboratory Tests 06/26/17 06/26/17 06/26/17 12:00 12:00 12:00 WBC 3.3 L RBC 6.38 H Hgb 15.9 D Hct 48.9 MCV 76.7 L MCH 25.0 L MCHC 32.6 RDW 15.6 Plt Count 294 D MPV 8.0 Sickle Cell Screen Negative Sodium 136 Potassium 4.7 D Chloride 101 Carbon Dioxide 24 Anion Gap 11 BUN 28 H D Creatinine 1.3 Creat Clearance w eGFR > 60 Random Glucose 82 Calcium 8.9 Total Bilirubin 0.8 D AST 228 H D ALT 76 Alkaline Phosphatase 186 H D Total Protein 8.0 Albumin 3.5 Urine Color Urine Appearance Urine pH Ur Specific [place] Urine Protein Urine Glucose (UA) Urine Ketones Urine Blood Urine Nitrite Urine Bilirubin Urine Urobilinogen Ur Leukocyte Esterase Urine RBC Urine WBC RPR Titer Nonreactive 06/26/17 06/29/17 16:00 07:50 WBC RBC Hgb Hct MCV MCH MCHC RDW Plt Count MPV Sickle Cell Screen Sodium Potassium Chloride Carbon Dioxide Anion Gap BUN 18 D Creatinine Creat Clearance w eGFR Random Glucose Calcium Total Bilirubin AST 51 H D ALT Alkaline Phosphatase 149 H Total Protein Albumin Urine Color Straw Urine Appearance Clear Urine pH 5.0 Ur Specific [place] <= 1.005 Urine Protein 2+ H Urine Glucose (UA) Negative Urine Ketones Negative Urine Blood 1+ H Urine Nitrite Negative Urine Bilirubin Negative Urine Urobilinogen Negative Ur Leukocyte Esterase Negative Urine RBC None Urine WBC None RPR Titer Labs noted: UA: 2+ protein and 1+ blood Encouraged to drink lots of water, recommends repeat UA - Medication Discharge Medications: Ambulatory Orders Dabigatran Etexilate Mesylate [Pradaxa -] 150 mg PO BID 10/14/16 Folic Acid 1 mg PO DAILY 10/14/16 Furosemide [Lasix -] 40 mg PO BID 10/14/16 Lisinopril 10 mg PO DAILY 10/14/16 Sotalol HCl [Sotalol] 120 mg PO BID 10/14/16 Pantoprazole Sodium [Protonix -] 40 mg PO DAILY tablet.ec 12/02/16 Zolpidem Tartrate [Ambien] 10 mg PO HS PRN #14 tablet MDD 10 02/03/17 - Diagnosis (1) Alcohol dependence with uncomplicated withdrawal Status: Acute (2) Cardiac defibrillator in situ Status: Chronic (3) GERD (gastroesophageal reflux disease) Status: Chronic Qualifiers: Esophagitis presence: without esophagitis Qualified Code(s): K21.9 - Gastro-esophageal reflux disease without esophagitis (4) History of atrial fibrillation Status: Chronic (5) Hypertension Status: Chronic Qualifiers: Hypertension type: essential hypertension Qualified Code(s): I10 - Essential (primary) hypertension (6) Hematuria Status: Acute (7) Proteinuria Status: Acute - AMA Did Patient Leave Against Medical Advice: Yes (Encouraged f/u with PCP in 1 week )
[2017-06-29] MEDS ORDERED: chlordiazePOXIDE HCL 10 MG CAPSULE PO SCH (17:00)
== END 2017-06-29 10:01 | disposition left against medical advice (07) | DRG 770 ==
LOC: YASAS 08:28 → Y3N 12:18
PROVIDERS: ADMIT Internal Medicine Addiction Medicine; ATTEND Internal Medicine Addiction Medicine
PROC: HZ2ZZZZ Detoxification Services for Substance Abuse Treatment (ICD-10-PCS; principal; 2017-06-26)
DX: F10.230 Alcohol dependence with withdrawal, uncomplicated (principal); F10.220 Alcohol dependence with intoxication, uncomplicated; F10.282 Alcohol dependence with alcohol-induced sleep disorder; F43.10 Post-traumatic stress disorder, unspecified; F25.9 Schizoaffective disorder, unspecified; K21.9 Gastro-esophageal reflux disease without esophagitis; I10 Essential (primary) hypertension; I48.91 Unspecified atrial fibrillation; R31.9 Hematuria, unspecified; R80.9 Proteinuria, unspecified; Z95.810 Presence of automatic (implantable) cardiac defibrillator; Z86.69 Personal history of other diseases of the nervous system and sense organs
CPT/HCPCS: 36415; 80053; 81003; 81015; 84075; 84450; 84520; 85027; 85660; 86593; 93005; 93010

== ENCOUNTER 2018-03-13 08:24 | Inpatient (IN) | payer BC ==
[2018-03-13 10:35] VITALS: BMI 25.0
--- NOTE | 2018-03-13 14:22 | HP ---
CIWA Score - CIWA Score Nausea/Vomitin Muscle Tremors: 3 Anxiety: 3 Agitation: 3 Paroxysmal Sweats: 1-Minimal Palms Moist Orientation: 0-Oriented Tacttile Disturbances: 1-Very Mild Itch/Numbness Auditory Disturbances: 1-Very Mild Visual Disturbances: 0-None Headache: 2-Mild CIWA-Ar Total Score: 17 Admission ROS [facility] - HPI Chief Complaint: i need help to stop drinking alcohol and xanax Allergies/Adverse Reactions: Allergies Allergy/AdvReac Type Severity Reaction Status Date / Time No Known Allergies Allergy Verified 03/13/18 10:57 History of Present Illness: this 37 years old male with alcohol and xanax dependence,seeking detox, withdrawal symptom,last detox 06/26/17 tp 06/29/17 born with transportation of great vessels had surgery at age 1 year hypertension seizure last 01/04 anxiety,depression,insomnia longest period of sobriety 6 months Exam Limitations: No Limitations - Ebola screening Have you traveled outside of the country in the last 21 days: No (N) Have you had contact with anyone from an Ebola affected area: No Have you been sick,other than usual withdrawal symptoms: No Do you have a fever: No - Review of Systems Constitutional: Loss of Appetite, Malaise, Night Sweats, Changes in sleep, Weakness EENT: reports: Nose Congestion Respiratory: reports: No Symptoms reported Cardiac: reports: No Symptoms Reported (s/p surgery for transportation of great vessels) GI: reports: Diarrhea, Nausea, Vomiting, Abdominal cramping : reports: No Symptoms Reported Musculoskeletal: reports: Back Pain, Muscle Pain Integumentary: reports: Dryness Neuro: reports: Headache, Tremors Endocrine: reports: No Symptoms Reported Hematology: reports: No Symptoms Reported Psychiatric: reports: No Sypmtoms Reported, Judgement Intact, Mood/Affect Appropiate, Orientated x3, Anxious, Depressed Patient History - Patient Medical History Hx Anemia: No Hx Asthma: No Hx Chronic Obstructive Pulmonary Disease (COPD): No Hx Cancer: No Hx Cardiac Disorders: Yes (atrial fibrillation/defibrillator implanted in 2015) Hx Hypertension: Yes Hx Hypercholesterolemia: No Hx Pacemaker: No HX Cerebrovascular Accident: No Hx Seizures: Yes (alcohol related-last episode was 01/04) Hx Diabetes: No Hx Gastrointestinal Disorders: Yes (acid reflux) Hx Liver Disease: No Hx Genitourinary Disorders: No Hx Sexually Transmitted Disorders: No Hx Renal Disease (ESRD): No Hx Thyroid Disease: No Hx Human Immunodeficiency Virus (HIV): No ([id number] ) Hx Hepatitis C: No Hx Depression: Yes (anxiety,insomnia) Hx Suicide Attempt: No Hx Bipolar Disorder: No Hx Schizophrenia: No Other Medical History: no sucidal,no homicidal - Patient Surgical History Past Surgical History: Yes Hx Neurologic Surgery: No Hx Cataract Extraction: No Hx Cardiac Surgery: Yes (AICD 02/02; OPEN SURGERY AT AGE 1 YEAR) Hx Lung Surgery: No Hx Breast Surgery: No Hx Breast Biopsy: No Hx Abdominal Surgery: No Hx Appendectomy: No Hx Cholecystectomy: No Hx Genitourinary Surgery: No Hx Section: No Hx Orthopedic Surgery: No Other Surgical History: 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 History Hx Alcohol Use: Yes Hx Substance Use: Yes Substance Use Type: Alcohol, Tranquilizers Hx Substance Use Treatment: Yes ([facility] 06/26/17 to 06/29/17) - Substances Abused Alcohol-beer/vodka Route: Oral Frequency: Daily Amount used: 1-6 pk./1/2-1 pt. Age of first use: 23 Date of Last Use: 03/13/18 Xanax Route: Oral Frequency: 3-6 times per week Amount used: 2-4 mg. Age of first use: 35 Date of Last Use: 03/10/18 Family Disease History - Family Disease History Family Disease History: Heart Disease: Father (alcohol ,), Other: Father , Mother (alcohol, ), Brother (anemia, etoh) Admission Physical Exam S - Vital Signs Vital Signs: Vital Signs - 24 hr 03/13/18 10:33 Temperature 96.7 F L Pulse Rate 84 Respiratory 18 Rate Blood Pressure 126/88 - Physical General Appearance: Yes: Moderate Distress, Tremorous, Irritable, Sweating, Anxious HEENTM: Yes: Normal ENT Inspection, JENIFFER, Pharynx Normal Respiratory: Yes: Lungs Clear, Normal Breath Sounds, No Respiratory Distress Neck: Yes: Within Normal Limits, No masses,lesions,Nodules, Supple Breast: Yes: Within Normal Limits Cardiology: Yes: Within Normal Limits, Regular Rhythm, Regular Rate, S1, S2, Other (s/p implanred defbrillator in 2016) Abdominal: Yes: Within Normal Limits, Normal Bowel Sounds, Non Tender, Flat, Soft Genitourinary: Yes: Within Normal Limits Back: Yes: Within Normal Limits Musculoskeletal: Yes: Back pain, Muscle Pain Extremities: Yes: Within Normal Limits, Normal Range of Motion, Tremors Neurological: Yes: Within Normal Limits, 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 NML intact, Fully Oriented, Alert, Motor Strength 5/5 Integumentary: Yes: Dry Lymphatic: Yes: Within Normal Limits - Diagnostic (1) Alcohol dependence with uncomplicated withdrawal Current Visit: Yes Status: Acute (2) Benzodiazepine dependence Current Visit: Yes Status: Acute (3) Post traumatic stress disorder (PTSD) Current Visit: Yes Status: Chronic (4) Cardiac defibrillator in situ Current Visit: Yes Status: Chronic (5) GERD (gastroesophageal reflux disease) Current Visit: Yes Status: Chronic Qualifiers: Esophagitis presence: without esophagitis Qualified Code(s): K21.9 - Gastro -esophageal reflux disease without esophagitis (6) History of atrial fibrillation Current Visit: Yes Status: Chronic (7) History of transposition of great vessels Current Visit: Yes Status: Chronic (8) Hypertension Current Visit: Yes Status: Chronic Qualifiers: Hypertension type: essential hypertension Qualified Code(s): I10 - Essential (primary) hypertension (9) Seizure Current Visit: No Status: Chronic (10) Seizure Current Visit: Yes Status: Acute Cleared for Admission [facility] - Detox or Rehab [facility] Level of Care: Medically Managed Detox Regimen/Protocol: Librium [facility] Breath Alcohol Content Breath Alcohol Content: 0.155 Urine Drug Screen - Results Drug Screen Negative: No Urine Drug Screen Results: BZO-Benzodiazepines, TCA-Tricyclic Antidepress
[2018-03-13] MEDS ORDERED: MAG HYDROX/AL HYDROX/SIMETH 30 ML UNIT-DOSE CUP PO PRN (14:38)
[2018-03-13] MEDS ORDERED: chlordiazePOXIDE HCL 25 MG CAPSULE PO PRN (14:38)
[2018-03-13] MEDS ORDERED: IBUPROFEN 400 MG TABLET (FP) PO PRN (14:38)
[2018-03-13] MEDS ORDERED: ACETAMINOPHEN 325 MG TABLET (FP) PO PRN (14:38)
[2018-03-13] MEDS ORDERED: hydrOXYzine PAMOATE 50 MG CAPSULE (FP) PO PRN (14:38)
[2018-03-13] MEDS ORDERED: MAGNESIUM CITRATE 300 ML BOTTLE PO PRN (14:38)
[2018-03-13] MEDS ORDERED: MENTHOL/PHENOL 1 EACH UD MM PRN (14:38)
[2018-03-13] MEDS ORDERED: P-EPHED 60MG/TRIPROLIDI 2.5MG TABLET PO PRN (14:38)
[2018-03-13] MEDS ORDERED: guaiFENesin/D-METHORPHAN HB 10 ML UNIT-DOSE CUPS PO PRN (14:38)
[2018-03-13] MEDS ORDERED: LOPERAMIDE HCL 2 MG CAPSULE PO PRN (14:38)
[2018-03-13] MEDS ORDERED: MAGNESIUM HYDROX 2400MG/30ML ORAL SUSPENSION 30 ML CUP PO PRN (14:38)
[2018-03-13] MEDS ORDERED: chlordiazePOXIDE HCL 25 MG CAPSULE PO ONE (15:00)
[2018-03-13] MEDS: chlordiazePOXIDE HCL 25 MG CAPSULE PO SCH ×2 (16:18→22:28)
[2018-03-13] MEDS ORDERED: MELATONIN 5 MG TABLETS PO PRN (22:00)
[2018-03-13] MEDS: DABIGATRAN ETEXILATE MESYLATE 150 MG CAPSULE PO SCH (22:27)
[2018-03-13] MEDS: SOTALOL HCL 80 MG TABLET (FP) PO SCH (22:27)
[2018-03-13] MEDS: THIAMINE HCL 100 MG TABLET (FP) PO SCH (22:27)
--- NOTE | 2018-03-13 23:25 | PN ---
[facility] Progress Note Note: Called to review abnormal patient EKG. Patient denies chest pain or shortness of breath. Vital Signs - 24 hr 03/13/18 03/13/18 03/13/18 10:33 15:59 22:27 Temperature 96.7 F L 96.1 F L 96.7 F L Pulse Rate 84 79 97 H Respiratory 18 20 16 Rate Blood Pressure 126/88 128/87 115/75 EKG reviewed and compared with 06/26/17 EKG. There are no significant changes noted. Patient instructed to report any chest pain or shortness of breath to medical.
[2018-03-14] MEDS: chlordiazePOXIDE HCL 25 MG CAPSULE PO SCH ×4 (05:19→22:33)
--- NOTE | 2018-03-14 08:48 | EKG ---
Test Reason : Blood Pressure : / mmHG Vent. Rate : 084 BPM Atrial Rate : 084 BPM P-R Int : 182 ms QRS Dur : 162 ms QT Int : 432 ms P-R-T Axes : 015 110 -51 degrees QTc Int : 510 ms NORMAL SINUS RHYTHM RIGHT BUNDLE BRANCH BLOCK LEFT POSTERIOR FASCICULAR BLOCK BIFASCICULAR BLOCK POSSIBLE INFERIOR INFARCT (CITED ON OR BEFORE 29-NOV-2016) ANTEROSEPTAL INFARCT (CITED ON OR BEFORE 23-DEC-2016) MARKED T WAVE ABNORMALITY, CONSIDER LATERAL ISCHEMIA ABNORMAL ECG WHEN COMPARED WITH ECG OF 26-JUN-2017 16:58, QUESTIONABLE CHANGE IN INITIAL FORCES OF ANTEROSEPTAL LEADS Confirmed by VESTA JOHNSON, NOHEMY ([id number]) on 03/14/2018 8:48:17 AM Referred By: Confirmed By:NOHEMY LEMONS MD
[2018-03-14 10:05] LABS: HEMATOCRIT 49.1 % (35.4-49); HEMOGLOBIN 15.8 GM/dL (11.7-16.9); MCH 24.7 pg (25.7-33.7); MCHC 32.2 g/dl (32.0-35.9); MEAN CELL VOLUME 76.8 fl (80-96); MEAN PLT VOLUME 8.6 fl (7.5-11.1); PLATELET COUNT 205 K/MM3 (134-434); RBC 6.39 M/mm3 (4.00-5.60); RDW 16.9 % (11.9-15.9); WHITE BLOOD COUNT 2.7 K/mm3 (4.0-10.0)
[2018-03-14 10:27] LABS: ALBUMIN 3.1 g/dl (3.4-5.0); ANION GAP 10 (8-16); BILIRUBIN,TOTAL 1.4 mg/dL (0.2-1.0); BLOOD UREA NITROGEN 20 mg/dL (7-18); CALCIUM 7.8 mg/dL (8.5-10.1); CHLORIDE 109 mmol/L (98-107); CO2 18 mmol/L (21-32); CREATININE 0.9 mg/dL (0.7-1.3); GLUCOSE,RANDOM 110 mg/dL (74-106); SGPT/ALT 349 U/L (12-78); SODIUM 137 mmol/L (136-145); TOT PROT 7.1 g/dl (6.4-8.2)
[2018-03-14 10:28] LABS: ALK PHOS 216 U/L (45-117)
[2018-03-14] MEDS: PRENATAL VITAMINS W/ FOLIC ACID TABLET (FP) PO SCH (10:28)
[2018-03-14] MEDS: DABIGATRAN ETEXILATE MESYLATE 150 MG CAPSULE PO SCH ×2 (10:28→22:34)
[2018-03-14] MEDS: FUROSEMIDE 40 MG TABLET (FP) PO SCH (10:29)
[2018-03-14] MEDS: SOTALOL HCL 80 MG TABLET (FP) PO SCH ×2 (10:29→22:34)
[2018-03-14] MEDS: PANTOPRAZOLE 40 MG TABLET (FP) PO SCH (10:29)
[2018-03-14] MEDS: LISINOPRIL 10 MG TABLET (FP) PO SCH (10:29)
[2018-03-14 10:37] LABS: POTASSIUM 4.5 mmol/L (3.5-5.1)
[2018-03-14 10:38] LABS: SGOT/AST 870 U/L (15-37)
--- NOTE | 2018-03-14 11:41 | CONSULT ---
[facility] Psychiatric Consult - Data Date of interview: 03/14/18 Admission source: [facility] Identifying data: Readmission to [facility] for this 37 y/o AA male seeking detox treatment on for alcohol and xanax dependence.Patient is , a father of one,domiciled and employed. Substance Abuse History: Discussed with patient.Mr Arango confirmed a chroinc history of alcohol dependence and sporadic use of xanax.Smoking history : Never smoked. Have you smoked in the past 12 months: No. Hx Chewing Tobacco Use: No. Initiated information on smoking cessation: Yes. - Substance & Tx. History. Hx Alcohol Use: Yes. Hx Substance Use: Yes. Substance Use Type: Alcohol, Tranquilizers. Hx Substance Use Treatment: Yes ([facility] 06/26/17 to 06/29). - Substances Abused. Alcohol-beer/vodka. Route: Oral. Frequency: Daily. Amount used: 1-6 pk./1/2-1 pt. Age of first use: 23. Date of Last Use : 03/13/18. Xanax. Route: Oral. Frequency: 3-6 times per week. Amount used: 2-4 mg. Age of first use: 35. Date of Last Use: 03/10/18 Medical History: Atrial fibrillation (pacemaker in place),hypertension,alcohol- related seizures,syncope and a history of heart surgery at [age] year of age ( congenital transposition of the great vessels). Psychiatric History: Patient denies. Physical/Sexual Abuse/Trauma History: Patient denies. Additional Comment: Urine Drug Screen Results: BZO-Benzodiazepines, TCA- Tricyclic Antidepressant.Noted. Mental Status Exam - Mental Status Exam Alert and Oriented to: Time, Place, Person Cognitive Function: Good Patient Appearance: Well Groomed Mood: Hopeful, Euthymic Affect: Appropriate, Normal Range Patient Behavior: Appropriate, Cooperative Speech Pattern: Clear Voice Loudness: Normal Thought Process: Intact, Goal Oriented Thought Disorder: Not Present Hallucinations: Denies Suicidal Ideation: Denies Homicidal Ideation: Denies Insight/Judgement: Fair Sleep: Poorly, Difficulty falling asleep Appetite: Good Muscle strength/Tone: Normal Gait/Station: Normal Psychiatric Findings - Problem List ([place] 1, 2,3) (1) Alcohol dependence with uncomplicated withdrawal Current Visit: Yes Status: Acute (2) Benzodiazepine dependence Current Visit: Yes Status: Acute (3) Insomnia Current Visit: Yes Status: Chronic - Initial Treatment Plan Initial Treatment Plan: Psychoeducation provided in this session.Sleep hygiene discussed.Detoxification in progress.Ambien 10 mg po hs prn.Patient is made aware of the risk of parasomnias.Agrees to this careplan.Observation.
[2018-03-14] MEDS ORDERED: ONDANSETRON *ODT* 4 MG TABLET SL PRN (15:10)
[2018-03-14] MEDS ORDERED: TRIMETHOBENZAMIDE HCL 200MG/2ML INJ IM PRN (15:12)
--- NOTE | 2018-03-14 15:15 | PN ---
S CIWA - CIWA Score Nausea/Vomitin Muscle Tremors: 4-Moderate,w/Arms Extend Anxiety: 3 Agitation: 3 Paroxysmal Sweats: 3 Orientation: 0-Oriented Tacttile Disturbances: 1-Very Mild Itch/Numbness Auditory Disturbances: 0-None Visual Disturbances: 0-None Headache: 2-Mild CIWA-Ar Total Score: 19 [facility] Progress Note (SOAP) Subjective: Interrupted Sleep, H/A, Body aches, Sweating, Nausea, Tremors. Objective: PATIENT A & O X 3, OBSERVED AMBULATING ON UNIT. NO ACUTE DISTRESS. 03/14/18 15:13 Vital Signs Temperature 98.6 F 03/14/18 14:50 Pulse Rate 67 03/14/18 14:50 Respiratory Rate 20 03/14/18 14:50 Blood Pressure 124/85 03/14/18 14:50 O2 Sat by Pulse Oximetry (%) Laboratory Tests 03/14/18 03/14/18 03/14/18 05:30 05:30 05:30 WBC 2.7 L RBC 6.39 H Hgb 15.8 Hct 49.1 H MCV 76.8 L MCH 24.7 L MCHC 32.2 RDW 16.9 H Plt Count 205 D MPV 8.6 Sodium 137 Potassium 4.5 Chloride 109 H Carbon Dioxide 18 L D Anion Gap 10 BUN 20 H Creatinine 0.9 D Creat Clearance w eGFR > 60 Random Glucose 110 H D Calcium 7.8 L Total Bilirubin 1.4 H D AST 870 H D ALT 349 H D Alkaline Phosphatase 216 H D Total Protein 7.1 Albumin 3.1 L RPR Titer Nonreactive LABS NOTED. PATIENT REPORTS HISTORY OF LIVER CIRRHOSIS. 03/14/18 15:15 Assessment: 03/14/18 15:13 WITHDRAWAL SYMPTOMS. Plan: CONTINUE DETOX. PRN TIGAN IM FOR NAUSEA. REPEAT CBC ON 03/16/2018 FOR ADMISSION ABNORMALITIES.
[2018-03-14] MEDS: ZOLPIDEM TARTRATE 5 MG TABLET PO SCH (22:33)
[2018-03-14] MEDS: THIAMINE HCL 100 MG TABLET (FP) PO SCH (22:33)
[2018-03-15] MEDS: chlordiazePOXIDE HCL 25 MG CAPSULE PO SCH ×2 (05:21→10:33)
[2018-03-15] MEDS: PRENATAL VITAMINS W/ FOLIC ACID TABLET (FP) PO SCH (10:32)
[2018-03-15] MEDS: FUROSEMIDE 40 MG TABLET (FP) PO SCH (10:32)
[2018-03-15] MEDS: PANTOPRAZOLE 40 MG TABLET (FP) PO SCH (10:32)
[2018-03-15] MEDS: SOTALOL HCL 80 MG TABLET (FP) PO SCH ×2 (10:33→22:28)
[2018-03-15] MEDS: LISINOPRIL 10 MG TABLET (FP) PO SCH (10:33)
[2018-03-15] MEDS: DABIGATRAN ETEXILATE MESYLATE 150 MG CAPSULE PO SCH ×2 (10:33→22:28)
--- NOTE | 2018-03-15 14:09 | PN ---
S CIWA - CIWA Score Nausea/Vomitin Muscle Tremors: 3 Anxiety: 3 Agitation: 2 Paroxysmal Sweats: 2 Orientation: 0-Oriented Tacttile Disturbances: 1-Very Mild Itch/Numbness Auditory Disturbances: 0-None Visual Disturbances: 0-None Headache: 1-Very Mild CIWA-Ar Total Score: 15 [facility] Progress Note (SOAP) Subjective: Tremor, anxious, sweating Objective: 03/15/18 14:05 Last Vital Signs Temp Pulse Resp BP Pulse Ox 96.2 F L 68 20 131/90 03/15/18 09:54 03/15/18 09:54 03/15/18 09:54 03/15/18 09:54 Laboratory Tests 03/14/18 03/14/18 03/14/18 05:30 05:30 05:30 WBC 2.7 L RBC 6.39 H Hgb 15.8 Hct 49.1 H MCV 76.8 L MCH 24.7 L MCHC 32.2 RDW 16.9 H Plt Count 205 D MPV 8.6 Sodium 137 Potassium 4.5 Chloride 109 H Carbon Dioxide 18 L D Anion Gap 10 BUN 20 H Creatinine 0.9 D Creat Clearance w eGFR > 60 Random Glucose 110 H D Calcium 7.8 L Total Bilirubin 1.4 H D AST 870 H D ALT 349 H D Alkaline Phosphatase 216 H D Total Protein 7.1 Albumin 3.1 L RPR Titer Nonreactive HIV 1&2 Antibody Screen HIV P24 Antigen 03/14/18 08:35 WBC RBC Hgb Hct MCV MCH MCHC RDW Plt Count MPV Sodium Potassium Chloride Carbon Dioxide Anion Gap BUN Creatinine Creat Clearance w eGFR Random Glucose Calcium Total Bilirubin AST ALT Alkaline Phosphatase Total Protein Albumin RPR Titer HIV 1&2 Antibody Screen Negative HIV P24 Antigen Negative Labs reviewed: elevated hepatic panel Assessment: 03/15/18 14:06 Withdrawal symptoms Noted with elevated LFTs Plan: Continue detox Encouraged PO water hydration Elevated LFTs probably due to cirrhosis of liver: repeat hepatic panel
[2018-03-15] MEDS: chlordiazePOXIDE 5 MG CAPSULE PO SCH ×2 (17:34→22:27)
[2018-03-15] MEDS: THIAMINE HCL 100 MG TABLET (FP) PO SCH (22:27)
[2018-03-15] MEDS: ZOLPIDEM TARTRATE 5 MG TABLET PO SCH (22:27)
[2018-03-16] MEDS: chlordiazePOXIDE 5 MG CAPSULE PO SCH ×2 (06:03→10:27)
[2018-03-16] MEDS: PRENATAL VITAMINS W/ FOLIC ACID TABLET (FP) PO SCH (10:27)
[2018-03-16] MEDS: PANTOPRAZOLE 40 MG TABLET (FP) PO SCH (10:27)
[2018-03-16] MEDS: FUROSEMIDE 40 MG TABLET (FP) PO SCH (10:27)
[2018-03-16] MEDS: LISINOPRIL 10 MG TABLET (FP) PO SCH (10:27)
[2018-03-16] MEDS: DABIGATRAN ETEXILATE MESYLATE 150 MG CAPSULE PO SCH ×2 (10:28→22:23)
[2018-03-16] MEDS: SOTALOL HCL 80 MG TABLET (FP) PO SCH ×3 (10:29→22:24)
[2018-03-16 10:34] LABS: BASO % 0.5 % (0-2.0); EOS % 2.1 % (0-4.5); HEMATOCRIT 45.5 % (35.4-49); HEMOGLOBIN 14.4 GM/dL (11.7-16.9); LYMPH % 31.3 % (8-40); MCH 24.3 pg (25.7-33.7); MCHC 31.7 g/dl (32.0-35.9); MEAN CELL VOLUME 76.5 fl (80-96); MEAN PLT VOLUME 8.8 fl (7.5-11.1); MONO % 8.5 % (3.8-10.2); NEUT % 57.6 % (42.8-82.8); PLATELET COUNT 133 K/MM3 (134-434); RBC 5.95 M/mm3 (4.00-5.60); RDW 17.1 % (11.9-15.9)
[2018-03-16 10:45] LABS: ALBUMIN 2.6 g/dl (3.4-5.0); BILIRUBIN,DIRECT 0.3 mg/dL (0.0-0.2); BILIRUBIN,TOTAL 0.8 mg/dL (0.2-1.0); TOT PROT 6.1 g/dl (6.4-8.2)
[2018-03-16] MEDS ORDERED: LISINOPRIL 10 MG TABLET (FP) PO ONE (13:00)
[2018-03-16] MEDS ORDERED: SOTALOL HCL 80 MG TABLET (FP) PO SCH (13:00)
[2018-03-16] MEDS ORDERED: DABIGATRAN ETEXILATE MESYLATE 150 MG CAPSULE PO SCH (13:00)
--- NOTE | 2018-03-16 13:01 | PN ---
[facility] Progress Note (SOAP) Subjective: Sleep disturbance Sweats Shakes Objective: 03/16/18 13:00 A & O x 3 Gait steady No acute distress noted Vital Signs Temperature 98.6 F 03/16/18 11:19 Pulse Rate 74 03/16/18 11:19 Respiratory Rate 18 03/16/18 11:19 Blood Pressure 131/81 03/16/18 11:19 O2 Sat by Pulse Oximetry (%) Assessment: 03/16/18 13:01 withdrawal sx Plan: Continue detox
[2018-03-16] MEDS ORDERED: DABIGATRAN ETEXILATE MESYLATE 150 MG CAPSULE PO ONE (13:15)
--- NOTE | 2018-03-16 13:19 | PN ---
[facility] Progress Note Note: One time doses of Betapace and Pradaxa ordered per pharmacy advise because nurse not able to pick prior orders.
[2018-03-16] MEDS ORDERED: SOTALOL HCL 80 MG TABLET (FP) PO ONE (13:30)
[2018-03-16] MEDS: chlordiazePOXIDE HCL 10 MG CAPSULE PO SCH ×2 (18:20→22:24)
[2018-03-16] MEDS: ZOLPIDEM TARTRATE 5 MG TABLET PO SCH (22:23)
[2018-03-16] MEDS: THIAMINE HCL 100 MG TABLET (FP) PO SCH (22:24)
[2018-03-17] MEDS: chlordiazePOXIDE HCL 10 MG CAPSULE PO SCH (05:55)
[2018-03-17 09:15] VITALS: BP 132/87; PULSE 65; TEMP 97
[2018-03-17] MEDS ORDERED: LISINOPRIL 10 MG TABLET (FP) PO SCH (10:00)
--- NOTE | 2018-03-17 22:41 | PN ---
[facility] Progress Note (SOAP) Subjective: Patient denies current Detox symptoms and reports that he feels well overall. Objective: PATIENT A & O X 3, OBSERVED AMBULATING ON UNIT. NO ACUTE DISTRESS. 03/17/18 22:39 Vital Signs Temperature 97.0 F L 03/17/18 09:14 Pulse Rate 65 03/17/18 09:14 Respiratory Rate 18 03/17/18 09:14 Blood Pressure 132/87 03/17/18 09:14 O2 Sat by Pulse Oximetry (%) Laboratory Last Values WBC 4.0 K/mm3 (4.0-10.0) D 03/16/18 07:55 RBC 5.95 M/mm3 (4.00-5.60) H 03/16/18 07:55 Hgb 14.4 GM/dL (11.7-16.9) 03/16/18 07:55 Hct 45.5 % (35.4-49) 03/16/18 07:55 MCV 76.5 fl (80-96) L 03/16/18 07:55 MCH 24.3 pg (25.7-33.7) L 03/16/18 07:55 MCHC 31.7 g/dl (32.0-35.9) L 03/16/18 07:55 RDW 17.1 % (11.9-15.9) H 03/16/18 07:55 Plt Count 133 K/MM3 (134-434) L D 03/16/18 07:55 MPV 8.8 fl (7.5-11.1) 03/16/18 07:55 Neutrophils % 57.6 % (42.8-82.8) 03/16/18 07:55 Lymphocytes % 31.3 % (8-40) 03/16/18 07:55 Monocytes % 8.5 % (3.8-10.2) 03/16/18 07:55 Eosinophils % 2.1 % (0-4.5) 03/16/18 07:55 Basophils % 0.5 % (0-2.0) 03/16/18 07:55 Nucleated RBC % 0 % (0-0) 03/16/18 07:55 Sodium 137 mmol/L (136-145) 03/14/18 05:30 Potassium 4.5 mmol/L (3.5-5.1) 03/14/18 05:30 Chloride 109 mmol/L (98-107) H 03/14/18 05:30 Carbon Dioxide 18 mmol/L (21-32) L D 03/14/18 05:30 Anion Gap 10 (8-16) 03/14/18 05:30 BUN 20 mg/dL (7-18) H 03/14/18 05:30 Creatinine 0.9 mg/dL (0.7-1.3) D 03/14/18 05:30 Creat Clearance w eGFR > 60 (>60) 03/14/18 05:30 Random Glucose 110 mg/dL (74-106) H D 03/14/18 05:30 Calcium 7.8 mg/dL (8.5-10.1) L 03/14/18 05:30 Total Bilirubin 0.8 mg/dL (0.2-1.0) D 03/16/18 07:55 Direct Bilirubin 0.3 mg/dL (0.0-0.2) H 03/16/18 07:55 AST 143 U/L (15-37) H D 03/16/18 07:55 ALT 172 U/L (12-78) H D 03/16/18 07:55 Alkaline Phosphatase 199 U/L (45-117) H 03/16/18 07:55 Total Protein 6.1 g/dl (6.4-8.2) L 03/16/18 07:55 Albumin 2.6 g/dl (3.4-5.0) L 03/16/18 07:55 RPR Titer Nonreactive (NONREACTIVE) 03/14/18 05:30 HIV 1&2 Antibody Screen Negative 03/14/18 08:35 HIV P24 Antigen Negative 03/14/18 08:35 LABS NOTED. Assessment: 03/17/18 22:40 COMPLETION OF DETOX REGIMEN. Plan: PATIENT SCHEDULED FOR DISCHARGE FROM DETOX UNIT TODAY.
--- NOTE | 2018-03-17 22:45 | DS ---
[facility] Detox Discharge Summary Admission Date: 03/13/18 Discharge Date: 03/17/18 - History Present History: Alcohol Dependence, Sedative Dependence Additional Comments: PATIENT GOING TO [facility] ([place], [place] FOR AFTERCARE. PATIENT DECLINED OFFER OF DISCHARGE PRESCRIPTIONS, STATING THAT HE ALREADY HAD ADEQUATE SUPPLIES OF ALL PRESCRIBED MEDICATION AT HOME. PATIENT WAS DISCHARGED FROM DETOX UNIT NI STABLE MEDICAL CONDITION. Pertinent Past History: HTN, History of Atrial Fibrillation, History of Cardiac Defibrillator Placement , History of Transposition of Great Vessels, GERD, History of seizure (due to withdrawal), Insomnia, PTSD. - Physical Exam Results Vital Signs: Vital Signs Temperature 97.0 F L 03/17/18 09:14 Pulse Rate 65 03/17/18 09:14 Respiratory Rate 18 03/17/18 09:14 Blood Pressure 132/87 03/17/18 09:14 O2 Sat by Pulse Oximetry (%) Pertinent Admission Physical Exam Findings: WITHDRAWAL SYMPTOMS. Laboratory Tests 03/14/18 03/14/18 03/14/18 05:30 05:30 05:30 WBC 2.7 L RBC 6.39 H Hgb 15.8 Hct 49.1 H MCV 76.8 L MCH 24.7 L MCHC 32.2 RDW 16.9 H Plt Count 205 D MPV 8.6 Neutrophils % Lymphocytes % Monocytes % Eosinophils % Basophils % Nucleated RBC % Sodium 137 Potassium 4.5 Chloride 109 H Carbon Dioxide 18 L D Anion Gap 10 BUN 20 H Creatinine 0.9 D Creat Clearance w eGFR > 60 Random Glucose 110 H D Calcium 7.8 L Total Bilirubin 1.4 H D Direct Bilirubin AST 870 H D ALT 349 H D Alkaline Phosphatase 216 H D Total Protein 7.1 Albumin 3.1 L RPR Titer Nonreactive HIV 1&2 Antibody Screen HIV P24 Antigen 03/14/18 03/16/18 03/16/18 08:35 07:55 07:55 WBC 4.0 D RBC 5.95 H Hgb 14.4 Hct 45.5 MCV 76.5 L MCH 24.3 L MCHC 31.7 L RDW 17.1 H Plt Count 133 L D MPV 8.8 Neutrophils % 57.6 Lymphocytes % 31.3 Monocytes % 8.5 Eosinophils % 2.1 Basophils % 0.5 Nucleated RBC % 0 Sodium Potassium Chloride Carbon Dioxide Anion Gap BUN Creatinine Creat Clearance w eGFR Random Glucose Calcium Total Bilirubin 0.8 D Direct Bilirubin 0.3 H AST 143 H D ALT 172 H D Alkaline Phosphatase 199 H Total Protein 6.1 L Albumin 2.6 L RPR Titer HIV 1&2 Antibody Screen Negative HIV P24 Antigen Negative LABS NOTED. - Treatment Hospital Course: Detox Protocol Followed, Detoxed Safely, Responded well, Discharged Condition Good Patient has Accepted a Rehab Referral to: PT. GOING TO [facility] - Medication Discharge Medications: Ambulatory Orders Dabigatran Etexilate Mesylate [Pradaxa -] 150 mg PO BID 10/14/16 Furosemide [Lasix -] 40 mg PO DAILY 10/14/16 Lisinopril 10 mg PO DAILY 10/14/16 Sotalol HCl [Sotalol] 120 mg PO BID 10/14/16 Pantoprazole Sodium [Protonix -] 40 mg PO DAILY tablet.ec 12/02/16 Zolpidem Tartrate [Ambien] 10 mg PO HS MDD 10 03/13/18 - Diagnosis (1) Alcohol dependence with uncomplicated withdrawal Status: Acute (2) Benzodiazepine dependence Status: Acute (3) Seizure Status: Acute (4) Post traumatic stress disorder (PTSD) Status: Chronic (5) Cardiac defibrillator in situ Status: Chronic (6) GERD (gastroesophageal reflux disease) Status: Chronic Qualifiers: Esophagitis presence: without esophagitis Qualified Code(s): K21.9 - Gastro -esophageal reflux disease without esophagitis (7) History of atrial fibrillation Status: Chronic (8) History of transposition of great vessels Status: Chronic (9) Hypertension Status: Chronic Qualifiers: Hypertension type: essential hypertension Qualified Code(s): I10 - Essential (primary) hypertension (10) Insomnia Status: Chronic Qualifiers: Insomnia type: unspecified Qualified Code(s): G47.00 - Insomnia, unspecified - AMA Did Patient Leave Against Medical Advice: No
== END 2018-03-17 11:07 | disposition home or self-care (01) | DRG 775 ==
LOC: YASAS 08:24 → Y3N 14:26
PROVIDERS: ADMIT Internal Medicine; ATTEND Internal Medicine
PROC: HZ2ZZZZ Detoxification Services for Substance Abuse Treatment (ICD-10-PCS; principal; 2018-03-13)
DX: F13.230 Sedative, hypnotic or anxiolytic dependence with withdrawal, uncomplicated (principal); F10.20 Alcohol dependence, uncomplicated; F43.10 Post-traumatic stress disorder, unspecified; I10 Essential (primary) hypertension; I48.91 Unspecified atrial fibrillation; Z95.810 Presence of automatic (implantable) cardiac defibrillator; K21.9 Gastro-esophageal reflux disease without esophagitis; G47.00 Insomnia, unspecified; K74.60 Unspecified cirrhosis of liver; F10.24 Alcohol dependence with alcohol-induced mood disorder; F10.280 Alcohol dependence with alcohol-induced anxiety disorder; G40.509 Epileptic seizures related to external causes, not intractable, without status epilepticus; Z87.74 Personal history of (corrected) congenital malformations of heart and circulatory system
CPT/HCPCS: 36415; 80053; 80076; 85025; 85027; 86593; 87389; 93005; 93010